=== PATIENT | male | born 1960 | race Caucasian/White ===

== ENCOUNTER 2023-02-10 10:39 | Outpatient (OUT) | payer OTHER, MEDICARE, SELFPAY ==
[2023-02-10 11:11] LABS: Basophils Percent Auto 0.6 % (0.2-2.0); Eosinophils Absolute Auto 0.1 10^3/uL (0.0-0.7); Eosinophils Percent Auto 2.1 % (0.9-7.0); Hematocrit 39.2 % (42.0-54.0); Hemoglobin 12.9 g/dL (14.0-18.0); Immature Granulocytes Abs Auto 0.02 10^3/uL (0.00-0.03); Immature Granulocytes Pct Auto 0.4 % (0.0-0.5); Lymphocytes Absolute Auto 0.9 10^3/uL (1.2-3.8); Lymphocytes Percent Auto 16.7 % (20.5-60.0); Mean Corpuscular HGB Conc 32.9 g/dL (29.9-35.2); Mean Corpuscular Hemoglobin 30.6 pg (25.9-34.0); Mean Corpuscular Volume 92.9 fL (80.0-94.0); Mean Platelet Volume 9.4 fL (9.5-13.5); Monocytes Absolute Auto 0.4 10^3/uL (0.3-0.8); Monocytes Percent Auto 7.9 % (1.7-12.0); Neutrophils Absolute Auto 3.8 10^3/uL (1.4-6.5); Neutrophils Percent Auto 72.3 % (43.0-75.0); Platelet Count 196 10^3/uL (150-450); Red Blood Count 4.22 10^6/uL (4.70-6.10); Red Cell Distribution Width 13.2 % (11.0-15.0); White Blood Count 5.2 10^3/uL (4.0-11.0)
[2023-02-10 11:28] LABS: Erythrocyte Sedimentation Rate 57 mm/hr (<=20)
[2023-02-10 11:52] LABS: Alanine Aminotransferase 23 U/L (16-63); Albumin Globulin Ratio 0.7; Albumin Level 3.2 g/dL (3.4-5.0); Alkaline Phosphatase 82 U/L (46-116); Anion Gap 11.7; Aspartate Amino Transferase 11 U/L (15-37); BUN Creatinine Ratio 19.6; Bilirubin Total 0.4 mg/dL (0.2-1.0); C Reactive Protein 1.7 mg/dL (<=1.0); Calcium 9.4 mg/dL (8.5-10.1); Carbon Dioxide 30.5 mmol/L (21.0-32.0); Chloride 104 mmol/L (98-107); Chol HDL Ratio 3.2; Cholesterol 163 mg/dL (<=200); Estimated GFR (African America >60 (>=60); Estimated GFR (Non-African Ame >60 (>=60); Globulin 4.4 g/dL; Glucose 87 mg/dL (74-106); HDL Cholesterol 51 mg/dL (40-60); LDL Cholesterol Calculated 98.8 mg/dL; Potassium 4.2 mmol/L (3.5-5.1); Sodium 142 mmol/L (136-145); Total Protein 7.6 g/dL (6.4-8.2); Triglycerides 66 mg/dL (<=150); VLDL CHOLESTEROL 13.2 mg/dL
== END 2023-02-10 10:40 | disposition home or self-care (01) ==
LOC: LAB 10:42
PROVIDERS: PCP Internal Medicine; Visit Provider Internal Medicine
DX: Z00.00 Encounter for general adult medical examination without abnormal findings (principal); Z12.5 Encounter for screening for malignant neoplasm of prostate
CPT/HCPCS: 36415; 80053; 80061; 82607; 84443; 85025; 85652; 86140; G0103

== ENCOUNTER 2023-03-18 11:49 | Outpatient (OUT) | payer OTHER, MEDICARE, SELFPAY ==
--- NOTE | 2023-03-18 | XR_ITS ---
[address] [address] Patient Name: CYDNEY HERNÁNDEZ MRN: [facility]:[id number] date: 1960 Sex: M Assigned Patient Location: LAB Current Patient Location: LAB Accession/Order Number: [id number] Exam Date: 03/18/2023 12:40 Report Date: 03/18/2023 21:04 At the request of: SHARON BENJAMIN Procedure: XR lumbar spine 6V w bending Exam: Radiographs: XR lumbar spine 6V w bending Reason for exam: Lumbago with sciatica Comparison: None XR/XR lumbar spine 6V w bending IMPRESSION: No radiographically evident lumbar spine fractures or malalignment. Degenerative changes throughout the lumbar spine with multilevel disc space narrowing. Remainder unremarkable. Electronically authenticated by: DAFNE MICHAUD Date: 03/18/2023 21:04
[2023-03-19 12:13] LABS: ANA Direct Negative (Negative)
[2023-03-19 13:08] LABS: Lyme Total Antibody CIA Negative (Negative)
[2023-03-19 17:07] LABS: Albumin 3.3 g/dL (2.9-4.4); Alpha-1-Globulin 0.3 g/dL (0.0-0.4); Alpha-2-Globulin 1.1 g/dL (0.4-1.0); Free Kappa Lt Chains,S 19.7 mg/L (3.3-19.4); Free Lambda Lt Chains,S 16.2 mg/L (5.7-26.3); Gamma Globulin 0.9 g/dL (0.4-1.8); Immunoglobulin A, Qn, Serum 179 mg/dL (61-437); Immunoglobulin G, Qn, Serum 893 mg/dL (603-1613); Immunoglobulin M, Qn, Serum 62 mg/dL (20-172); Kappa/Lambda Ratio,S 1.22 (0.26-1.65); Protein, Total 6.7 g/dL (6.0-8.5)
== END 2023-03-18 11:50 | disposition home or self-care (01) ==
LOC: LAB 11:55
PROVIDERS: PCP Internal Medicine; Visit Provider Internal Medicine
DX: M54.41 Lumbago with sciatica, right side (principal); M54.42 Lumbago with sciatica, left side; R20.8 Other disturbances of skin sensation
CPT/HCPCS: 36415; 72114; 82784; 83521; 84155; 84165; 86038; 86334; 86618

== ENCOUNTER 2023-03-25 14:19 | Outpatient (OUT) | payer OTHER, MEDICARE, SELFPAY ==
[2023-03-25 14:50] LABS: Erythrocyte Sedimentation Rate 41 mm/hr (<=20)
[2023-03-25 15:36] LABS: Creatine Kinase 31 U/L (39-308)
[2023-03-26 05:08] LABS: Rheumatoid Factor (RF) 11.6 IU/mL (<14.0)
== END 2023-03-25 14:20 | disposition home or self-care (01) ==
LOC: LAB 14:20
PROVIDERS: PCP Internal Medicine; Visit Provider Psychiatry & Neurology Neurology
DX: R20.0 Anesthesia of skin (principal)
CPT/HCPCS: 36415; 82175; 82300; 82550; 82746; 83655; 83825; 85652; 86140; 86430; 86431

== ENCOUNTER 2024-02-22 12:13 | Outpatient (OUT) | payer OTHER, SELFPAY ==
--- OUTSIDE RECORDS SUMMARY | 2024-02-22 12:19 | XMS_ITS | CCD ---
Author Organization [facility] Care Team Providers Care Alum Mixer Name Role Phone Atilio Alcocer DO Primary Care Provider ANASTASIIA SALMERON Referring Unavailab ATILIO La Primary Care Unavailable ANASTASIIA SALMERON Referring Unavailab ATILIO La Primary Care Unavailable Atilio Alcocer DO Primary Care Provider ATILIO ALCOCER Referring Unavailable ATILIO ALCOCER Primary Care Unavailable ROSCOE BRISENO Attending Unavailable JAMEY GARAY Consulting UnavailDR ATILIO Galvin Primary Care Unavailable ROSCOE BRISENO Admitting Unavailable JAKE DOMINIQUE Consulting Unavailable Asakamilla Imad Unavailable MD Jase Imkamilla Attending Provider [phone] DO Atilio Alcocer Primary Care Provider Atilio Alcocer Unavailable Atilio Alcocer Primary Care Unavailable Asaad, Imkamilla Attending Unavailable Asaad, Imad Admitting Unavailable Atilio Alcocer MD Primary Care Provider HILLS, GI D Referring Unavailable HILLS, GI D Referring Unavailable HILLS, GI D Attending Unavailable HILLS, GI D Referring Unavailable HILLS, GI D Attending Unavailable HILLS, GI D Referring Unavailable HILLS, GI D Referring Unavailable HILLS, GI D Attending Unavailable LYUDMILA THAKUR Attending Unavailable KWAKU, IG Elliott Attending Unavailable Allergies Allergy Classification Reported Allergen(s) Allergy Type Date of Onset Reaction(s) Facility (4 sources) Morphine Drug Allergy 5 Unknown [facility] (2 sources) Promethazine Drug Allergy 5 [facility] (1 source) Iothalamate Drug Allergy 4 [facility] (1 source) Levamisole Drug Allergy 4 [facility] (10 sources) Promethazine; Translations: [promethazine] Drug Allergy 4 Hallucinations, Unknown [facility] (2 sources) Metoclopramide Drug Allergy 3 Unknown [facility] Medications Current Medications Medication Drug Class(es) Dates Sig (Normalized) Sig (Original) 8 hr acetaminophen 650 mg extended release oral tablet (8 sources) take 1 tablet by mouth every eight hours as needed for pain acetaminophen (Tylenol 8 Hour) 650 MG ER tablet Take 650 mg by mouth every 8 (eight) hours if needed for mild pain. Do not crush, chew, or split. 0 Active take 2 tablets by mo [facility] every eight hours Acetaminophen ER 650 MG 2 tablets as nee ded Orally every 8 hrs Active atorvastatin 40 mg oral tablet (3 sources) HMG-CoA Reductase Inhibitor take 1 tablet by mouth every twenty-four hours Atorvastatin Calcium 40 MG 1 tablet Orally Once a day Active cyclobenzaprine hydrochloride 10 mg oral tablet (2 sources) Muscle Relaxant take 1 tablet by mouth every twenty-four hours Cyclobenzaprine HCl 10 MG 1 tablet at bedtime as needed Orally Once a day Active diclofenac 18 mg oral capsule (8 sources) Nonsteroidal Anti-inflammatory Drug Start: 2022 Diclofenac 18 MG capsule Take by mouth. 0 01/31/2023 Active take 1 tablet by [facility] every twelve hours Diclofenac Sodium 75 MG 1 tablet as need ed Orally Twice a day Active take 1 capsule by mo [facility] every eight hours Diclofenac 35 MG 1 capsule as needed Ora lly Three times a day Active gabapentin 100 mg oral capsule (2 sources) Anti-epileptic Agent Start: 03-25-2023 take 1 capsule by mouth in the morning, then take 1 capsule by mouth at bedtime gabapentin (Neurontin) 100 MG capsule TAKE 1 CAPSULE BY MOUTH IN THE MORNING AND 1 CAPSULES AT BEDTIME 0 03/25/2023 Active omeprazole 40 mg delayed release oral capsule (12 sources) Proton Pump Inhibitor Start: 07-22-2022 omeprazole (PriLOSEC) [address] capsule predniSONE 10 mg oral tablet (2 sources) Start: 06-15-2023 take 5 tablets by mouth once daily, then take 4 tablets by mouth once daily, then take 3 tablets by mouth once daily, then take 2 tablets by mouth once daily, then take 1 tablet by mouth once daily predniSONE (Deltasone) 10 MG tablet Indications: Low back pain, unspecified back pain laterality, unspecified chronicity, unspecified whether sciatica present Take 5 tabs p.o. daily x3 days Take 4 tabs p.o. daily x3 days Take 3 tabs p.o. daily x3 days Take 2 tabs p.o. daily x3 days Take 1 tab p.o. daily x3 days 45 tablet 0 06/15/2023 Active Start: 06-15-2023 take 5 tablets by mo uth once daily, then take 4 tablets by mouth once daily, then take 3 tablets by mouth once daily, then take 2 tablets by mouth once daily, then take 1 tablet by mouth once daily predniSONE (Deltasone) 10 MG tablet Indications: Low back pain, unspecified back pain laterality, unspecified chronicity, unspecified whether sciatica present Take 5 tabs p.o. daily x3 days Take 4 tabs p.o. daily x3 days Take 3 tabs p.o. daily x3 days Take 2 tabs p.o. daily x3 days Take 1 tab p.o. daily x3 days 45 tablet 0 06/15/2023 Active Problems Active Problems Problem Classification Problem Date Documented Da te Episodic/Chronic Diseases of white blood cells (9 sources) Leukopenia; Translations: [Decreased white blood cell count, unspecified] Chronic Disorders of lipid metabolism (10 sources) Pure hypercholesterolemia ; Translations: [Familial hypercholesterolemia ] Chronic Esophageal disorders (6 sources) Gastro-esophageal reflux disease with esophagitis; Translations: [Gastroesophageal reflux disease with esophagitis without hemorrhage] Chronic Genitourinary symptoms and ill-defined conditions (1 source) Nocturia Episodic Hyperplasia of prostate (5 sources) Nocturia due to benign prostatic hypertrophy; Translations: [Benign prostatic hyperplasia with lower urinary tract symptoms] Chronic Nonspecific chest pain (4 sources) Chest pain, unspecified; Translations: [CHEST PAIN UNSPECIFIED] Onset: 06-26-2022 Episodic Nutritional deficiencies (9 sources) Vitamin B12 deficiency (non anemic); Translations: [Deficiency of other specified B group vitamins] Episodic Open wounds of extremities (9 sources) Puncture wound of foot; Translations: [Puncture wound without foreign body, unspecified foot, initial encounter] Episodic Osteoarthritis (7 sources) Primary coxarthrosis, bilateral; Translations: [Bilateral primary osteoarthritis of hip] Chronic Other ear and sense organ disorders (9 sources) Impacted cerumen; Translations: [Impacted cerumen, left ear] Episodic Other gastrointestinal disorders (9 sources) Esophageal dysphagia; Translations: [Other dysphagia] Episodic Other gastrointestinal disorders (1 source) Dysphagia, unspecified; Translations: [Dysphagia, unspecified] Onset: 07-22-2022 Episodic Other gastrointestinal disorders (1 source) Heartburn; Translations: [Heartburn] Onset: 07-22-2022 Episodic Other nervous system disorders (9 sources) Paresthesia; Translations: [Paresthesia of skin] Episodic Other nervous system disorders (1 source) Paresthesia of skin Episodic Other nervous system disorders (3 sources) Abnormal sensation; Translations: [Other disturbances of skin sensation] Episodic Other nervous system disorders (1 source) Other disturbances of skin sensation Episodic Other nervous system disorders (2 sources) Numbness of hand; Translations: [Anesthesia of skin] 06-15-2023 Episodic Other non-traumatic joint disorders (2 sources) Bilateral wrist pain; Translations: [Pain in right wrist] 06-15-2023 Episodic Other nutritional; endocrine; and metabolic disorders (9 sources) Obese class I; Translations: [Obesity, unspecified] Chronic Other screening for suspected conditions (not mental disorders or infectious disease) (1 source) Encounter for screening for malignant neoplasm of prostate Episodic Other skin disorders (9 sources) Other specified disorders of pigmentation; Translations: [Pigmentation] Episodic Other upper respiratory disease (1 source) Dysphonia Episodic Skin and subcutaneous tissue infections (9 sources) Cellulitis of lower limb; Translations: [Cellulitis of left lower limb] Episodic Spondylosis; intervertebral disc disorders; other back problems (7 sources) Lumbar spondylosis; Translations: [Spondylosis without myelopathy or radiculopathy, lumbar region] Chronic Spondylosis; intervertebral disc disorders; other back problems (11 sources) Radiculopathy, lumbar region; Translations: [Acute back pain with sciatica] Episodic Unclassified (1 source) Encounter for screening for malignant neoplasm of colon; Translations: [Encounter for screening for malignant neoplasm of colon] Onset: 07-22-2022 Past or Other Problems Problem Classification Problem Date Documented Da te Episodic/Chronic Esophageal disorders (4 sources) Esophageal disorders; Translations: [Gastroesophageal reflux disease with esophagitis without hemorrhage] Viral infection (9 sources) Disease caused by 2019-nCoV; Translations: [COVID-19] Results Test Name Value Interpretation Reference Range Facility MR LUMBAR SPINE WO CONTRASTo n 07-09-2023 MR LUMBAR SPINE WO CONTRAST EXAMINATION: MR LUMBAR SPINE WO CONTRAST HISTORY: Chronic low back pain with increasing bilateral lower extremity radiculopathy, left worse than right. TECHNIQUE: Routine lumbosacral spine MR protocol without gadolinium. CONTRAST: None. COMPARISON: Radiographs 07/06/2023. RESULT: Counting reference: Lumbosacral junction. For the purposes of this report, L5-S1 is considered the last well-formed disc space. 5 lumbar type vertebral bodies. Alignment: Grade 1 anterolisthesis of L5 on S1 measuring around 5 mm. Alignment otherwise anatomic. Bone marrow signal: No evidence for acute fracture. Chronic bilateral L5 pars defects. No pathologic marrow infiltration. Multilevel endplate degenerative signal, especially at L3-L4 and L5-S1. Small Schmorl's nodes. Conus: The conus is within normal limits of signal intensity and morphology. Paraspinal soft tissues: Unremarkable. Lower thoracic spine: Visualized lower thoracic canal and foramina without significant narrowing. T12-L1: No significant canal or foraminal narrowing. L1-L2: No significant canal or foraminal narrowing. L2-L3: Tiny disc bulge. Facet degenerative changes. No significant canal or foraminal narrowing. L3-L4: Disc height loss. Broad-based disc bulge. Endplate osteophytes. Facet degenerative changes. Mild bilateral foraminal narrowing without significant canal narrowing. L4-L5: Disc bulge. Annular fissure. Endplate osteophytes. Facet degenerative changes. Mild bilateral foraminal narrowing without significant canal narrowing. L5-S1: Anterolisthesis with disc uncovering. Disc bulge. Facet degenerative changes. Moderate bilateral foraminal narrowing without significant canal narrowing. Sacrum and iliac wings: The visualized sacrum and iliac wings are within normal limits. IMPRESSION: Multilevel degenerative changes lumbar spine as discussed. No high-grade canal narrowing. Moderate bilateral foraminal narrowing at L5-S1. Grade 1 anterolisthesis of L5 on S1 secondary to chronic bilateral L5 pars defects. ELECTRONICALLY SIGNED BY: Zachery Leon MD Normal Not Available Comment on above: Order Comment: Previ ous metal in eye - 10 years ago No Panel Informationon 06-15 Radiology Study observation (narrative) [facility] XR Wrist - left 3 [facility] Result: AP lateral and oblique of the left wrist taken in the office today demonstrating more CMC arthritic findings. No acute fracture evidence of bony tumor [facility] XR Wrist - right 3 [facility] 0 06-15-2023 Imaging Result: AP lateral and oblique of the right wrist taken in the office today patient does have some arthritic findings tri-scaphoid region as well as early CMC joint with no other apparent collapse of the wrist or degenerative findings or acute fracture. [facility] C-Reactive Proteinon 023 C-Reactive Protein 1.7 mg/dL High <=1.0 mg/dL [facility] Other Comprehensive Metabolic Pane julio 02-10-2023 Albumin [Mass/Vol] 3.588650 g/dL Low 3.4-5.0 g/dL [employer] Other ALP [Catalytic activity/Vol] 82 U/L Normal 46-116 U/L [employer] Other ALT [Catalytic activity/Vol] 23 U/L Normal 16-63 U/L [employer] Other Anion gap [Moles/Vol] 11.7 mmol/L [employer] Other AST [Catalytic activity/Vol] 11 U/L Low 15-37 U/L [employer] Other Bilirubin [Mass/Vol] 0.1730052 mg/dL Normal 0.2-1.0 mg/dL [employer] Other Calcium [Mass/Vol] 9.0192651 mg/dL Normal 8.5-10 .1 mg/dL [employer] Other Chloride [Moles/Vol] 104 mmol/L Normal 98-107 mmol/L [employer] Other CO2 [Moles/Vol] 30.94258425 mmol/L Normal 21.0-3 2.0 mmol/L [employer] Other Creatinine [Mass/Vol] 0.02151082 mg/dL Normal 0.70-1.30 mg/dL [employer] Other Glucose [Mass/Vol] 87 mg/dL Normal 74-106 mg/dL [facility] Other Potassium [Moles/Vol] 4.64564408 mmol/L Normal 3.5-5.1 mmol/L [employer] Other Protein [Mass/Vol] 7.392281 g/dL Normal 6.4-8.2 g/dL N [facility] [employer] Other Sodium [Moles/Vol] 142 mmol/L Normal 136-145 mmol/L [employer] Other Urea nitrogen [Mass/Vol] 18.6922221 mg/dL Normal 7.0-18.0 mg/dL [employer] Other Urea nitrogen/Creatinine [Mass ratio] 19.6 mg/mg [employer] Other Comprehensive Metabolic Panel 4.4 g/dL [employer] Other Comprehensive Metabolic Panel 0.7 [employer] Other Comprehensive Metabolic Panel see note [employer] Other Comprehensive Metabolic Panel >60 >=60 [employer] Other Erythrocyte Sedimentation Ra lynne 02-10-2023 ESR (Bld) [Velocity] 57 mm/h High <=20 mm/hr [employer] Other Lipid Panelon 02-10-2023 Cholesterol [Mass/Vol] 163 mg/dL <=200 mg/dL [employer] Other Cholesterol in HDL [Mass/Vol] 51 mg/dL Normal 40-60 mg/dL [employer] Other Triglyceride [Mass/Vol] 66 mg/dL <=150 mg/dL [employer] Other Lipid Panel 98.8 mg/dL [employer] Other Lipid Panel 13.2 mg/dL [employer] Other Lipid Panel 3.2 [employer] Other PSA SCREENINGon 02-10-2023 PSA SCREENING 1.70 ng/mL <=4.00 ng/mL [employer] [facility] Other Julio 07-22-2022 L - -------- Specimen: [id number] Received: 07/22/22 Status: NAYLA Yeung Num: [id number] Spec Type: Surgical Subm Dr: Ollie Laguna MD Tissues: A Gastric Biopsy (GASTRIC BX) Procedures: Alphonso MELENDREZ/Heath L4 -------- Age/ Patient Sex Location Account Attending Physician -------- Rick Hernández/Dylan [id number] Ollie Laguna MD -------- SPEC NUM: [id number] RECD: 07/22/22 STATUS: NAYLA YEUNG NUM: [id number] ANNE-MARIE: 07/22/22- DR: Ollie Laguna MD ENTERED: 07/22/22 [facility] DR: SPEC TYPE: Surgical DEPT: S ORDERED: HE/2, Gross/Micro L4 ORDERED: HE/2, Gross/Micro L4 Pathological Diagnosis Stomach, gastric, biopsy: - Gastric mucosa negative for significant histopathologic changes. - Negative for Helicobacter pylori on H E stain. Clinical Information GERD, screening, rule out H. pylori Gross Description Received in formalin labeled with the patient's name, number and gastric, rule out H. pylori is one fragment of soft luther tissue measuring 0.4 x 0.3 x 0.2 cm. Entirely submitted in one cassette labeled A1. Microscopic Description Two glass slides with H E stained material have been examined. The microscopic findings support the above pathologic diagnosis. CPT Codes 84718 -------- -------- Specimen: [id number] Received: 07/22/22 Status: NAYLA Santacruzisael Num: [id number] Spec Type: Surgical Subm Dr: Ollie Laguna MD Tissues: A Gastric Biopsy (GASTRIC BX) Procedures: HE/2, Gross/Micro L4 -------- Patient: Rick Hernández [id number] (Continued) -------- Signed (signature on file) Fabiana Qureshi MD 07/23/22 1030 Normal [facility] CBC AUTO DIFFon 06-26-2022 BASO # 0.0 103/ul Normal 0.0-0.1 [facility] Comment on above: Performed By: #### C BC #### [facility] [address] [place] [address] Dr. Corey Thompson Basophils/100 WBC (Bld) 0.8 % Normal 0.2-2.0 [facility] Comment on above: Performed By: #### C BC #### [facility] [address] [place] [address] Dr. Corey Thompson EO # 0.1 103/ul Normal 0.0-0.7 [facility] Comment on above: Performed By: #### C BC #### [facility] [address] [place] [address] Dr. Corey Thompson Eosinophils/100 WBC (Bld) 2.8 % Normal 0.9-7.0 [facility] Comment on above: Performed By: #### C BC #### [facility] [address] [place] [address] Dr. Corey Thompson Erythrocyte distribution width (RBC) [Ratio] 13.0 % Normal 11.0-15.0 [facility] Comment on above: Performed By: #### C BC #### [facility] [address] [address] [address] Corey Thompson Hematocrit (Bld) [Volume fraction] 42.8 % Normal 42.0-54.0 [facility] Comment on above: Performed By: #### C BC #### [facility] [address] [address] [address] Corey Thompson Hemoglobin (Bld) [Mass/Vol] 15.1 g/dL Normal 14.0-18.0 [facility] Comment on above: Performed By: #### C BC #### [facility] [address] [place] [address] Dr. Corey Thompson IG # 0.01 10e3/ul Normal 0.00-0.03 [facility] Comment on above: Performed By: #### C BC #### [facility] [address] [place] [address] Dr. Corey Thompson IG % 0.3 % Normal 0.0-0.5 [facility] Comment on above: Performed By: #### C BC #### [facility] [address] [place] [address] Dr. Corey Thompson LYMPH # 1.3 103/ul Normal 1.2-3.8 [facility] Comment on above: Performed By: #### C BC #### [facility] [address] [place] [address] Dr. Corey Thompson Lymphocytes/100 WBC (Bld) 33.7 % Normal 20.5-60.0 [facility] Comment on above: Performed By: #### C BC #### [facility] [address] [place] [address] Dr. Corey Thompson MANUAL DIFF REQ NO Normal [facility] Comment on above: Performed By: #### C BC #### [facility] [address] [place] [address] Dr. Corey Thompson MCH (RBC) [Entitic mass] 31.9 pg Normal 25.9-34.0 [facility] Comment on above: Performed By: #### C BC #### [facility] [address] [place] [address] Dr. Corey Thompson MCHC (RBC) [Mass/Vol] 35.3 g/dL Critically high 29.9-35.2 [facility] Comment on above: Performed By: #### C BC #### [facility] [address] [place] [address] Dr. Corey Thompson MCV (RBC) [Entitic vol] 90.5 fL Normal 80.0-94.0 [facility] Comment on above: Performed By: #### C BC #### [facility] [address] [place] [address] Dr. Corey Thompson MONO # 0.5 103/ul Normal 0.3-0.8 [facility] Comment on above: Performed By: #### C BC #### [facility] [address] [place] [address] Dr. Corey Thompson Monocytes/100 WBC (Bld) 11.9 % Normal 1.7-12.0 [facility] Comment on above: Performed By: #### C BC #### [facility] [address] [place] [address] Dr. Corey Thompson NEUT # 2.0 103/ul Normal 1.4-6.5 [facility] Comment on above: Performed By: #### C BC #### [facility] [address] [place] [address] Dr. Corey Thompson Neutrophils/100 WBC (Bld) 50.5 % Normal 43.0-75.0 [facility] Comment on above: Performed By: #### C BC #### [facility] [address] [place] [address] Dr. Corey Thompson Platelet mean volume (Bld) [Entitic vol] 10.5 fL Normal 9.5-13.5 [facility] Comment on above: Performed By: #### C BC #### [facility] [address] [place] [address] Dr. Corey Thompson PLT 180 103/ul Normal 150-450 [facility] Comment on above: Performed By: #### C BC #### [facility] [address] [place] [address] Dr. Corey Thompson RBC 4.73 106/ul Normal 4.70-6.10 [facility] Comment on above: Performed By: #### C BC #### [facility] [address] [place] [address] Dr. Corey Thompson WBC 4.0 103/ul Normal 4.0-11.0 [facility] Comment on above: Performed By: #### C BC #### [facility] [address] [place] [address] Dr. Corey Thompson PROF 14(COMP METB)on 023 Albumin [Mass/Vol] 4.0 g/dL Normal 3.4-5.0 [facility] Comment on above: Performed By: #### C BOB, HSTROPN #### [facility] [address] [place] [address] Dr. Corey Thompson Albumin/Globulin [Mass ratio] 1.2 {ratio} Normal [facility] Comment on above: Performed By: #### C MP, HSTROPN #### [facility] [address] [place] [address] Dr. Corey Thompson ALP [Catalytic activity/Vol] 78 U/L Normal 46-116 [facility] Comment on above: Performed By: #### C MP, HSTROPN #### [facility] [address] [place] [address] Dr. Corey Thompson ALT [Catalytic activity/Vol] 27 U/L Normal 16-63 [facility] Comment on above: Performed By: #### C MP, HSTROPN #### [facility] [address] [place] [address] Dr. Corey Thompson Anion gap [Moles/Vol] 12.2 mmol/L Normal [facility] Comment on above: Performed By: #### C MP, HSTROPN #### [facility] [address] [place] [address] Dr. Corey Thompson AST [Catalytic activity/Vol] 20 U/L Normal 15-37 [facility] Comment on above: Performed By: #### C MP, HSTROPN #### [facility] [address] [address] [address] Corey Thompson Bilirubin [Mass/Vol] 0.5 mg/dL Normal 0.2-1.0 [facility] Comment on above: Performed By: #### C MP, HSTROPN #### [facility] [address] [place] [address] Dr. Corey Thompson Calcium [Mass/Vol] 9.2 mg/dL Normal 8.5-10.1 [facility] Comment on above: Performed By: #### C MP, HSTROPN #### [facility] [address] [place] [address] Dr. Corey Thompson Chloride [Moles/Vol] 101 mmol/L Normal 98-107 [facility] Comment on above: Performed By: #### C MP, HSTROPN #### [facility] [address] [place] [address] Dr. Corey Thompson CO2 [Moles/Vol] 27.6 mmol/L Normal 21.0-32.0 [facility] Comment on above: Performed By: #### C MP, HSTROPN #### [facility] [address] [place] [address] Dr. Corey Thompson Creatinine [Mass/Vol] 1.07 mg/dL Normal 0.70-1.30 [facility] Comment on above: Performed By: #### C MP, HSTROPN #### [facility] [address] [place] [address] Dr. Corey Thompson EGFR-AF LATVIAN >60 Normal >=60 [facility] Comment on above: Performed By: #### C MP, HSTROPN #### [facility] [address] [place] [address] Dr. Corey Thompson EGFR-NON AF LATVIAN >60 Normal >=60 [facility] Comment on above: Performed By: #### C MP, HSTROPN #### [facility] [address] [place] [address] Dr. Corey Thompson Globulin (S) [Mass/Vol] 3.4 g/dL Normal [facility] Comment on above: Performed By: #### C MP, HSTROPN #### [facility] [address] [address] [address] Corey Thompson Glucose [Mass/Vol] 104 mg/dL Normal 74-106 [facility] Comment on above: Performed By: #### C MP, HSTROPN #### [facility] [address] [place] [address] Dr. Corey Thompson Potassium [Moles/Vol] 3.8 mmol/L Normal 3.5-5.1 [facility] Comment on above: Performed By: #### C BOB, HSTROPN #### [facility] [address] [place], [place] [address] Dr. Corey Thompson Protein [Mass/Vol] 7.4 g/dL Normal 6.4-8.2 [facility] Comment on above: Performed By: #### C BOB, HSTROPN #### [facility] [address] [place] [address] Dr. Corey Thompson Sodium [Moles/Vol] 137 mmol/L Normal 136-145 [facility] Comment on above: Performed By: #### C BOB, HSTROPN #### [facility] [address] [place] [address] Dr. Corey Thompson Urea nitrogen [Mass/Vol] 18.0 mg/dL Normal 7.0-18.0 [facility] Comment on above: Performed By: #### C BOB, HSTROPN #### [facility] [address] [place] [address] Dr. Corey Thompson Urea nitrogen/Creatinine [Mass ratio] 16.8 mg/mg Normal [facility] Comment on above: Performed By: #### C BOB, HSTROPN #### [facility] [address] [place] [address] Dr. Corey Thompson PROTIMEon 06-26-2022 INR Coag (PPP) [Relative time] 0.97 {INR} Normal [facility] Comment on above: Performed By: #### P TT, PT #### [facility] [address] [place] [address] Dr. Corey Thopmson INR GUIDELINES SEE BELOW Normal [facility] Comment on above: Result Comment: MIGUEL RED INR: 2.0 - 3.0 CONDITIONS NOT LISTED BELOW 2.5 - 3.5 FOR PROSTHETIC HEART VALVE REPLACEMENT 2.5 - 3.5 RECURRENT THROMBOSIS Performed By: #### P TT, PT #### [facility] [address] [place] [address] Dr. Corey Thompson PT Coag (PPP) [Time] 10.3 s Normal 9.0-11.6 [facility] Comment on above: Performed By: #### P TT, PT #### [facility] [address] [place] [address] Dr. Corey Thompson PTTon 06-26-2022 aPTT Coag (Bld) [Time] 27.2 s Normal 22.3-36.2 [facility] Comment on above: Performed By: #### P TT, PT #### [facility] [address] [place] [address] Dr. Corey Thompson TROPONIN, HIGH SENSITIVITYon 06-26-2022 HSTROP 4.6 pg/mL Normal 4.0-76.1 [facility] Comment on above: Result Comment: CUT- OFF POINTS HAVE BEEN ESTABLISHED BASED ON THE FOURTH UNIVERSAL DEFINITIONS OF MYOCARDIAL INFARCTION. THE UPPER REFERENCE LIMIT (URL) OF TROPONIN, DEFINED THE 99TH PERCENTILE OF cTnI DISTRIBUTION IN A REFERENCE POPULATION, HAS BEEN CONFIRMED THE DECISION THRESHOLD FOR [place] DIAGNOSIS. Performed By: #### H STROPN #### [facility] [address] [place] [address] Dr. Corey Thompson HSTROP 4.3 pg/mL Normal 4.0-76.1 [facility] Comment on above: Result Comment: CUT- OFF POINTS HAVE BEEN ESTABLISHED BASED ON THE FOURTH UNIVERSAL DEFINITIONS OF MYOCARDIAL INFARCTION. THE UPPER REFERENCE LIMIT (URL) OF TROPONIN, DEFINED THE 99TH PERCENTILE OF cTnI DISTRIBUTION IN A REFERENCE POPULATION, HAS BEEN CONFIRMED THE DECISION THRESHOLD FOR [place] DIAGNOSIS. Performed By: #### C MP, HSTROPN #### [facility] [address] [place] [address] Dr. Corey Thompson XR CHEST 1 Von 06-26-2022 XR CHEST 1 V EXAMINATION: XR CHES T 1 V HISTORY: Chest pain COMPARISON: None. TECHNIQUE: Portable chest FINDINGS: The lung parenchyma is free of consolidation or infiltrate. No pneumothorax or pleural effusion. The cardiac, mediastinal and hilar contours are normal. The visualized osseous structures exhibit no gross abnormality. IMPRESSION: No acute cardiopulmonary abnormality. Electronically authenticated by: JAKE DOMINIQUE Date: 2022-06-26 19:[address] [facility] Lipid Profileon 03-04-2022 Cholesterol [Mass/Vol] 195 mg/dL Normal <200 [facility] Comment on above: Result Comment: Cholesterol Guidelines: <200 Desirable 200-240 Borderline >240 Undesirable Performed By: #### P SAS, LIPR #### [facility] [address] [place] [id number] Quality Analyst: Alex Bernal MD #### CDP, CP #### [address] [place] [phone] Quality Analyst: Jake Meade MD Cholesterol in HDL [Mass/Vol] 47 mg/dL Normal >40 [facility] Comment on above: Result Comment: HDL Guidelines: <40 Undesirable 40-59 Borderline >59 Desirable Performed By: #### P SAS, LIPR #### [employer] [address] [place] [address] Quality Analyst: Alex Bernal MD #### CDP, CP #### [address] [place] [phone] Quality Analyst: Jake Meade MD Cholesterol in LDL [Mass/Vol] 126 mg/dL Normal 0-130 [facility] Comment on above: Result Comment: LDL Guidelines: <100 Desirable 100-129 Near to/above Desirable 130-159 Borderline >159 Undesirable Direct (measured) LDL and calculated LDL are not interchangeable tests. Performed By: #### P SAS, LIPR #### [facility] [address] [address] Quality Analyst: Alex Bernal MD #### CDP, CP #### [facility] [address] [place], [place] [phone] Quality Analyst: Jake Meade MD Cholesterol.total/C holesterol in HDL [Mass ratio] 4.1 {ratio} Normal <5 [facility] Comment on above: Performed By: #### P SAS, LIPR #### [address] [place] [address] Quality Analyst: Alex Bernal MD #### CDP, CP #### [facility] [address] [place] [address] Quality Analyst: Jake Meade MD Triglyceride [Mass/Vol] 109 mg/dL Normal <150 [facility] Comment on above: Result Comment: Triglyceride Guidelines: <150 Desirable 150-199 Borderline 200-499 High >499 Very high Based on AHA Guidelines for fasting triglyceride, February 2012. Performed By: #### P SAS, LIPR #### [address] [address] Quality Analyst: Alex Bernal MD #### CDP, CP #### [address] [place] [address] Quality Analyst: Jake Meade MD PSA, Screeningon 03-04-2022 Prostatic Spec. Ag 1.20 ng/mL Normal <4.1 [facility] Comment on above: Result Comment: The Manuela ECLIA assay is used. Results obtained with different assay methods cannot be used interchangeably. Performed By: #### P SAS, LIPR #### [address] [place] [address] Quality Analyst: Alex Bernal MD #### CDP, CP #### [facility] [address] [place] [address] [place] [address] Quality Analyst: Jake Meade MD CBC with Auto Differentialon 03-03-2022 Absolute Eos # 0.08 [facility] Absolute Immature Granulocyte [facility] Absolute Lymph # 1.09 Low [facility] Absolute [place] # 0.33 [facility] Basophils (Bld) [#/Vol] 0.03 10*3/uL [facility] Basophils/100 WBC (Bld) 1 % 0 - 2 % [facility] Eosinophils/100 WBC (Bld) 2 % 1 - 4 % [facility] Hematocrit (Bld) [Volume fraction] 43.5 % 40.7 - 50.3 % [facility] Hemoglobin (Bld) [Mass/Vol] 15.3 g/dL 13.0 - 17.0 g/dL [facility] Immature granulocytes/100 WBC (Bld) 0 % 0 [facility] Interpretation and review of laboratory results Abnormal [facility] Lymphocytes/100 WBC (Bld) 31 % 24 - 43 % [facility] MCH (RBC) [Entitic mass] 33.6 pg High 25.2 - 33.5 pg [facility] MCHC (RBC) [Mass/Vol] 35.2 g/dL High 28.4 - 34.8 g/dL [facility] MCV (RBC) [Entitic vol] 95.6 fL 82.6 - 102.9 fL [facility] Monocytes/100 WBC (Bld) 10 % 3 - 12 % [facility] NRBC Automated 0.0 0.0 per 100 WBC [facility] Platelet distribution width (Bld) [Ratio] 12.8 % 11.8 - 14.4 % [facility] Platelet mean volume (Bld) [Entitic vol] 10.9 fL 8.1 - 13.5 fL [facility] Platelets (Bld) [#/Vol] 156 10*3/uL [facility] RBC (Bld) [#/Vol] 4.55 10*6/uL 4.21 - 5.7 7 m/uL [facility] Segmented neutrophils/100 WBC (Bld) 56 % 36 - 65 % [facility] Segs Absolute 1.93 [facility] WBC (Bld) [#/Vol] 3.5 10*3/uL [facility][NOTE 3] CBC with Diffon 10-31-2022 Abs. Basophil 0.03 k/uL Normal 0.00-0.[address] [facility] Comment on above: Performed By: #### P SAS, LIPR #### [address] [address] Quality Analyst: Alex Bernal MD #### CDP, CP #### [address] [place] [phone] Quality Analyst: Jake Meade MD Abs.Imm.Granulocyte <0.03 Normal 0.00-0.30 [facility] Comment on above: Performed By: #### P SAS, LIPR #### [address] [address] Quality Analyst: Alex Bernal MD #### CDP, CP #### [address] [place] [phone] ( Quality Analyst: Jake Meade MD Abs.Neutrophil (Seg) 1.93 k/uL Normal 1.50-8.10 [facility] Comment on above: Performed By: #### P SAS, LIPR #### [address] [address] Quality Analyst: Alex Bernal MD #### CDP, CP #### [address] [place] [phone] Quality Analyst: Jake Meade MD Basophils/100 WBC (Bld) 1 % Normal 0-2 [facility] Comment on above: Performed By: #### P SAS, LIPR #### [address] [address] Quality Analyst: Alex Bernal MD #### CDP, CP #### [address] [place] [phone] Quality Analyst: Jake Meade MD Eosinophils (Bld) [#/Vol] 0.08 10*3/uL Normal 0.00-0.44 [facility] Comment on above: Performed By: #### P SAS, LIPR #### [address] [address] Quality Analyst: Alex Bernal MD #### CDP, CP #### [address] [place] [address] Quality Analyst: Jake Meade MD Eosinophils/100 WBC (Bld) 2 % Normal 1-4 [facility] Comment on above: Performed By: #### P SAS, LIPR #### [address] [address] Quality Analyst: Alex Bernal MD #### CDP, CP #### [address] [place] [phone] Quality Analyst: Jake Meade MD Erythrocyte distribution width (RBC) [Ratio] 12.8 % Normal 11.8-14.4 [facility] Comment on above: Performed By: #### P SAS, LIPR #### [address] [address] Quality Analyst: Alex Bernal MD #### CDP, CP #### [address] [place] [address] Quality Analyst: Jake Meade MD Hematocrit (Bld) [Volume fraction] 43.5 % Normal 40.7-50.3 [facility] Comment on above: Performed By: #### P SAS, LIPR #### [address] [address] Quality Analyst: Alex Bernal MD #### CDP, CP #### [address] [place] [phone] Quality Analyst: Jake Meade MD Hemoglobin (Bld) [Mass/Vol] 15.3 g/dL Normal 13.0-17.0 [facility] Comment on above: Performed By: #### P SAS, LIPR #### [address] [address] Quality Analyst: Alex Bernal MD #### CDP, CP #### [facility] [address] [place], [place] [phone] Quality Analyst: Jake Meade MD Immature granulocytes/100 WBC (Bld) 0 % Normal 0 [facility] Comment on above: Performed By: #### P SAS, LIPR #### [address] [address] Quality Analyst: Alex Bernal MD #### CDP, CP #### [facility] [address] [place] [address] [place] [address] Quality Analyst: Jake Meade MD Lymphocytes (Bld) [#/Vol] 1.09 10*3/uL Low 1.10-3.70 [facility] Comment on above: Performed By: #### P SAS, LIPR #### [address] [address] Quality Analyst: Alex Bernal MD #### CDP, CP #### [facility] [address] [place] [address] Dr. [place] [phone] Quality Analyst: Jake Meade MD Lymphocytes/100 WBC (Bld) 31 % Normal 24-43 [facility] Comment on above: Performed By: #### P SAS, LIPR #### [address] [address] Quality Analyst: Alex Bernal MD #### CDP, CP #### [address] [place] [phone] Quality Analyst: Jake Meade MD MCH (RBC) [Entitic mass] 33.6 pg High 25.2-33.5 [facility] Comment on above: Performed By: #### P SAS, LIPR #### [facility] [address] [place], [place] [phone] Quality Analyst: Alex Bernal MD #### CDP, CP #### [facility] [address] [place] [address] Dr. [place], [place] [phone] Quality Analyst: Jake Meade MD MCHC (RBC) [Mass/Vol] 35.2 g/dL High 28.4-34.8 [facility] Comment on above: Performed By: #### P SAS, LIPR #### [address] [id number] Quality Analyst: Alex Bernal MD #### CDP, CP #### [facility] [address] [place] [address] Dr. [place] [phone] Quality Analyst: Jake Meade MD MCV (RBC) [Entitic vol] 95.6 fL Normal 82.6-102.9 [facility] Comment on above: Performed By: #### P SAS, LIPR #### [address] [id number] Quality Analyst: Alex Bernal MD #### CDP, CP #### [facility] [address] [place] [address] [place] [address] Quality Analyst: Jake Meade MD Monocytes (Bld) [#/Vol] 0.33 10*3/uL Normal 0.10-1.20 [facility] Comment on above: Performed By: #### P SAS, LIPR #### [address] [place], [place] [phone] Quality Analyst: Alex Bernal MD #### CDP, CP #### [address] [place] [address] Quality Analyst: Jake Meade MD Monocytes/100 WBC (Bld) 10 % Normal 3-12 [facility] Comment on above: Performed By: #### P SAS, LIPR #### [address] [phone] Quality Analyst: Alex Bernal MD #### CDP, CP #### [address] [place], [place] 6005183 Quality Analyst: Jake Meade MD Neutrophil (Seg) 56 % Normal 36-65 [facility] Comment on above: Performed By: #### P SAS, LIPR #### [address] [address] Quality Analyst: Alex Bernal MD #### CDP, CP #### [address] [place] [phone] Quality Analyst: Jake Meade MD NRBC Automated 0.0 per 100 WBC Normal 0.0 [facility] Comment on above: Performed By: #### P SAS, LIPR #### [address] [address] Quality Analyst: Alex Bernal MD #### CDP, CP #### [address] [place], [facility] Quality Analyst: Jake Meade MD Platelet mean volume (Bld) [Entitic vol] 10.9 fL Normal 8.1-13.5 [facility] Comment on above: Performed By: #### P SAS, LIPR #### [address] [address] Quality Analyst: Alex Bernal MD #### CDP, CP #### [address] [place] [phone] Quality Analyst: Jake Meade MD Platelets (Bld) [#/Vol] 156 10*3/uL Normal 138-453 [facility] Comment on above: Performed By: #### P SAS, LIPR #### [address] [address] Quality Analyst: Alex Bernal MD #### CDP, CP #### [address] [place] [address] Quality Analyst: Jake Meade MD RBC (Bld) [#/Vol] 4.55 10*6/uL Normal 4.21-5.77 [facility] Comment on above: Performed By: #### P SAS, LIPR #### [address] [address] Quality Analyst: Alex Bernal MD #### CDP, CP #### [address] [place] [address] Quality Analyst: Jake Meade MD WBC (Bld) [#/Vol] 3.5 10*3/uL Normal 3.5-11.3 [facility] Comment on above: Performed By: #### P SAS, LIPR #### [address] [address] Quality Analyst: Alex Bernal MD #### CDP, CP #### [address] [place] [address] Quality Analyst: Jake Meade MD Comp Metabolic Profon 2021 Albumin [Mass/Vol] 4.4 g/dL Normal 3.5-5.2 [facility] Comment on above: Performed By: #### P SAS, LIPR #### [address] [address] Quality Analyst: Alex Bernal MD #### CDP, CP #### [address] [place] [address] Quality Analyst: Jake Meade MD Albumin/Glob Ratio 1.8 Normal 1.0-2.5 [facility] Comment on above: Performed By: #### P SAS, LIPR #### [address] [address] Quality Analyst: Alex Bernal MD #### CDP, CP #### [facility] [address] [place] [address] Dr. [place], [place] [phone] Quality Analyst: Jake Meade MD Alkaline Phos 66 U/L Normal 40-[address] [facility] Comment on above: Performed By: #### P SAS, LIPR #### [address] [address] Quality Analyst: Alex Bernal MD #### CDP, CP #### [address] [place], [place] [phone] Quality Analyst: Jake Meade MD ALT [Catalytic activity/Vol] 25 U/L Normal 5-41 [facility] Comment on above: Performed By: #### P SAS, LIPR #### [address] [address] Quality Analyst: Alex Bernal MD #### CDP, CP #### [address] [place], [place] 9693983 Quality Analyst: Jake Meade MD Anion gap [Moles/Vol] 8 mmol/L Low 9-17 [facility] Comment on above: Performed By: #### P SAS, LIPR #### [address] [address] Quality Analyst: Alex Bernal MD #### CDP, CP #### [facility] [address] [place], [place] 1918083 Quality Analyst: Jake Meade MD AST [Catalytic activity/Vol] 20 U/L Normal <40 [facility] Comment on above: Performed By: #### P SAS, LIPR #### [address] [address] Quality Analyst: Alex Bernal MD #### CDP, CP #### [address] [place], [place] [phone] Quality Analyst: Jake Meade MD Bilirubin [Mass/Vol] 0.5 mg/dL Normal 0.3-1.2 [facility] Comment on above: Performed By: #### P SAS, LIPR #### [address] [address] Quality Analyst: Alex Bernal MD #### CDP, CP #### [address] [place], [place] 9403683 Quality Analyst: Jake Meade MD BUN/CRE Ratio 13 Normal 9-[address] [facility] Comment on above: Performed By: #### P SAS, LIPR #### [address] [address] Quality Analyst: Alex Bernal MD #### CDP, CP #### [address] [place], [place] [phone] Quality Analyst: Jake Meade MD Calcium [Mass/Vol] 9.2 mg/dL Normal 8.6-10.4 [facility] Comment on above: Performed By: #### P SAS, LIPR #### [address] [address] Quality Analyst: Alex Bernal MD #### CDP, CP #### [address] [place], [place] [phone] Quality Analyst: Jake Meade MD Chloride [Moles/Vol] 104 mmol/L Normal 98-107 [facility] Comment on above: Performed By: #### P SAS, LIPR #### [address] [address] Quality Analyst: Alex Bernal MD #### CDP, CP #### [address] [place], [place] [phone] Quality Analyst: Jake Meade MD CO2 [Moles/Vol] 27 mmol/L Normal 20-31 [facility] Comment on above: Performed By: #### P SAS, LIPR #### [facility] [address] [place] [address] Quality Analyst: Alex Bernal MD #### CDP, CP #### [address] [place], [place] 8643183 Quality Analyst: Jake Meade MD Creatinine [Mass/Vol] 0.92 mg/dL Normal 0.70-1.20 [facility] Comment on above: Performed By: #### P SAS, LIPR #### [address] [id number] Quality Analyst: Alex Bernal MD #### CDP, CP #### [address] [place] [address] Quality Analyst: Jake Meade MD GFR/1.73 sq M.predicted among non-blacks MDRD (S/P/Bld) [Vol rate/Area] mL/min/{1.73_m2} Normal >60 [facility] Comment on above: Result Comment: Effective Feb 03, 2022 These results are not intended for use in patients <18 years of age. eGFR results are calculated without a race factor using the 2020 CKD-EPI equation. Careful clinical correlation is recommended, particularly when comparing to results calculated using previous equations. The CKD-EPI equation is less accurate in patients with extremes of muscle mass, extra-renal metabolism of creatine, excessive creatine ingestion, or following therapy that affects renal tubular secretion. Performed By: #### P SAS, LIPR #### [address] [address] Quality Analyst: Alex Bernal MD #### CDP, CP #### [address] [place], [place] 1517783 Quality Analyst: Jake Meade MD Glucose [Mass/Vol] 98 mg/dL Normal 70-99 [facility] Comment on above: Performed By: #### P SAS, LIPR #### [address] [address] Quality Analyst: Alex Bernal MD #### CDP, CP #### [facility] [address] [place] [address] Dr[place], [place] [phone] Quality Analyst: Jake Meade MD Potassium [Moles/Vol] 4.4 mmol/L Normal 3.7-5.3 [facility] Comment on above: Performed By: #### P SAS, LIPR #### [address] [address] Quality Analyst: Alex Bernal MD #### CDP, CP #### [address] [place] [phone] Quality Analyst: Jake Meade MD Protein [Mass/Vol] 6.9 g/dL Normal 6.4-8.3 [facility] Comment on above: Performed By: #### P SAS, LIPR #### [address] [address] Quality Analyst: Alex Bernal MD #### CDP, CP #### [address] [place], [place] 9180183 Quality Analyst: Jake Meade MD Sodium [Moles/Vol] 139 mmol/L Normal 135-144 [facility] Comment on above: Performed By: #### P SAS, LIPR #### [address] [address] Quality Analyst: Alex Bernal MD #### CDP, CP #### [address] [place], [place] [phone] Quality Analyst: Jake Meade MD Urea nitrogen [Mass/Vol] 12 mg/dL Normal 8-23 [facility] Comment on above: Performed By: #### P SAS, LIPR #### [facility] [address] [place], [place] [phone] Quality Analyst: Alex Bernal MD #### CDP, CP #### [facility] [address] [place] [address] Quality Analyst: Jake Meade MD Comprehensive Metabolic Pane [facility] 03-03-2022 Albumin [Mass/Vol] 4.4 g/dL 3.5 - 5.2 g/dL [facility] Albumin/Globulin [Mass ratio] 1.8 {ratio} 1.0 - 2.5 [facility] ALP (Bld) [Catalytic activity/Vol] 66 U/L 40 - 129 U/L [facility] ALT [Catalytic activity/Vol] 25 U/L 5 - 41 U/L [facility] Anion gap [Moles/Vol] 8 mmol/L Low 9 - 17 mmol/L [facility] AST [Catalytic activity/Vol] 20 U/L NINF - 40 U/L [facility] Bilirubin [Mass/Vol] 0.5 mg/dL 0.3 - 1.2 mg/dL [facility] Calcium [Mass/Vol] 9.2 mg/dL 8.6 - 10. 4 mg/dL [facility] Chloride [Moles/Vol] 104 mmol/L 98 - 107 mmol/L [facility] CO2 [Moles/Vol] 27 mmol/L 20 - 31 mmol/L [facility] Creatinine [Mass/Vol] 0.92 mg/dL 0.70 - 1.20 mg/dL [facility] GFR/1.73 sq M.predicted MDRD (S/P/Bld) [Vol rate/Area] - PINF [facility] Comment on above: Effective Feb 03, 2022 These results are not intended for use in patients <18 years of age. eGFR results are calculated without a race factor using the 2020 CKD-EPI equation. Careful clinical correlation is recommended, particularly when comparing to results calculated using previous equations. The CKD-EPI equation is less accurate in patients with extremes of muscle mass, extra-renal metabolism of creatine, excessive creatine ingestion, or following therapy that affects renal tubular secretion. Glucose [Mass/Vol] 98 mg/dL 70 - 99 mg/dL [facility] Interpretation and review of laboratory results Abnormal [facility] Potassium [Moles/Vol] 4.4 mmol/L 3.7 - 5.3 mmol/L [facility] [facility] Protein [Mass/Vol] 6.9 g/dL 6.4 - 8.3 g/dL [facility] Sodium [Moles/Vol] 139 mmol/L 135 - 144 mmol/L [facility] Urea nitrogen (BldV) [Mass/Vol] 12 mg/dL 8 - 23 mg/dL [facility] Urea nitrogen/Creatinine (Bld) [Mass ratio] 13 9 - 20 [facility] XR SHOULDER RIGHT (MIN 2 VIE WS)on 12-19-2020 XR SHOULDER RIGHT (MIN 2 VIEWS) EXAM: XR SHOULDER RIGHT (MIN 2 VIEWS) HISTORY: M25.511 60-year-old male right shoulder pain and decreased range of motion. COMPARISON: None. TECHNIQUE: 3 views right shoulder. 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 Moderate degenerative change acromioclavicular joint. Negative for calcific bursitis. IMPRESSION: Severe degenerative changes right glenohumeral joint. Interpreted by: Delroy Bearden Jr., MD Signed by: Delroy Bearden Jr., MD 12/19/20 Final result Normal [facility] Vital Signs Date Time Vital Sign Value Performing Clinician Facility 06-15-2023 09:35-0500 Body height 172.7 cm [facility] Work Phone: [facility] 06-15-2023 09:35-0500 Body mass index (BMI) [Ratio] 33.85 kg/m2 [facility] Work Phone: [facility] 06-15-2023 09:35-0500 Body temperature 98.1 [degF] [facility] Work Phone: [facility] 02-12-2024 09:35-0500 Body weight 100.97 kg [facility] Work Phone: [facility] 03-09-2023 11:30-0500 Body height 172.72 cm Atilio Ball Other [facility] Other 03-09-2023 11:30-0500 Body mass index (BMI) [Ratio] 31.23 kg/m2 Atilio Ball Other [facility] Other 03-09-2023 11:30-0500 Body weight 93.17 kg Atilio Ball Other [facility] Other 03-09-2023 11:30-0500 Diastolic blood pressure 70 mm[Hg] Atilio Ball Other [facility] Other 03-09-2023 11:30-0500 Respiratory rate 12 /min Atilio Ball Other [facility] Other 03-09-2023 11:30-0500 Systolic blood pressure 106 mm[Hg] Atilio Ball Other [facility] Other 02-09-2023 14:45-0400 Body height 172.72 cm Atilio Ball Other [facility] Other 02-09-2023 14:45-0400 Body mass index (BMI) [Ratio] 31.05 kg/m2 Atilio Ball Other [facility] Other 02-09-2023 14:45-0400 Body weight 92.63 kg Atilio Ball Other [facility] Other 02-09-2023 14:45-0400 Diastolic blood pressure 70 mm[Hg] Atilio Ball Other [facility] Other 02-09-2023 14:45-0400 Respiratory rate 12 /min Atilio Ball Other [facility] Other 02-09-2023 14:45-0400 Systolic blood pressure 107 mm[Hg] Atilio Ball Other [facility] Other 07-22-2022 12:45-0400 Diastolic blood pressure 83 mm[Hg] DO Atilio Ball Work Phone: [facility] 07-22-2022 12:45-0400 Heart rate 60 /min DO Atilio Ball Work Phone: [facility] 07-22-2022 12:45-0400 Respiratory rate 16 /min DO Atilio Ball Work Phone: [facility] 07-22-2022 12:45-0400 SaO2% (BldA) [Mass fraction] 98 % DO Atilio Ball Work Phone: [facility] 07-22-2022 12:45-0400 Systolic blood pressure 124 mm[Hg] DO Atilio Ball Work Phone: [facility] 07-22-2022 10:31-0400 Body height 172.72 cm DO Atilio Ball Work Phone: [facility] 07-22-2022 10:31-0400 Body temperature 98.3 [degF] DO Atilio Ball Work Phone: [facility] 07-22-2022 10:31-0400 Body weight 93.89 kg DO Atilio Ball Work Phone: [facility] Encounters Encounter Date Encounter Type Care Provider Facility Start: 07-15-2023 End: 07-15-2023 ambulatory GI Elliott HILLS Not Available Start: 07-09-2023 End: 07-10-2023 ambulatory GI D HILLS Not Available Start: 07-06-2023 End: 07-06-2023 ambulatory GI D HILLS Not Available Start: 06-15-2023 End: 06-15-2023 ambulatory GI D HILLS Not Available Start: 06-15-2023 End: 06-15-2023 Patient encounter procedure Gi D Washington PA Work Phone: [facility] Comment on above: Bilateral wrist pain (Primary Dx); Bilateral hand numbness; Low back pain, unspecified back pain laterality, unspecified chronicity, unspecified whether sciatica present Start: 04-06-2023 End: 04-06-2023 ambulatory LYUDMILA THAKUR Not Available Start: 04-01-2023 End: 04-01-2023 ambulatory GI BENSON Not Available Start: 03-20-2023 End: 03-20-2023 ambulatory Atilio Alcocer Other [facility] Other Start: 03-20-2023 Telephone encounter Atilio ESCOBAR [facility] Start: 03-19-2023 End: 03-19-2023 ambulatory Atilio Leodan Other [facility] Other Start: 03-19-2023 Telephone encounter Atilio ESCOBAR G [facility] Start: 03-16-2023 End: 03-16-2023 ambulatory Atilio Alcocer Other [facility] Other Start: 03-16-2023 Telephone encounter Atilio Alcocer [facility] Start: 03-09-2023 End: 03-09-2023 ambulatory Atilio Alcocer Other [facility] Other Start: 03-09-2023 Office outpatient vi sit 15 minutes Atilio Alcocer [facility] Start: 02-16-2023 End: 02-16-2023 ambulatory Atilio Alcocer Other [facility] Other Start: 02-16-2023 Telephone encounter Atilio Alcocer [facility] Start: 02-09-2023 End: 02-09-2023 ambulatory Atilio Leodan Other [facility] Other Start: 02-09-2023 Encounter for genera l adult medical examination without abnormal findings Atilio Alcocer [facility] Start: 02-09-2023 Periodic preventive med est patient 40-64yrs Atilio Alcocer [facility] Start: 07-29-2022 End: 07-29-2022 ambulatory Imad Asaad Other [facility] Other Start: 07-29-2022 Telephone encounter Imad Asaad [facility] Start: 07-22-2022 Telephone encounter Atilio Alcocer [facility] Start: 07-22-2022 End: 07-22-2022 ambulatory Atilio Alcocer Facility:[facility] Start: 07-22-2022 End: 07-22-2022 Admission to same day surgery center DO Atilio Alcocer Work Phone: [facility] Work Phone: Start: 07-22-2022 End: 07-22-2022 ambulatory DO Atilio Alcocer Work Phone: [facility] Work Phone: Start: 07-03-2022 End: 07-03-2022 ambulatory Imad Asaad Other [facility] Other Start: 07-03-2022 Telephone encounter Imad Asaad [facility] [employer] Start: 06-26-2022 End: 06-26-2022 ambulatory ROSCOE LILI . Facility: Start: 03-03-2022 End: 03-04-2022 ambulatory ATILIO ALCOCER [facility] Start: 03-03-2022 End: 03-04-2022 Encounter for general adult medical examination without abnormal findings ATILIO ALCOCER [facility] Start: 03-03-2022 End: 03-03-2022 Subsequent hospital visit by physician Atilio Alcocer DO Work Phone: [facility] Start: 12-19-2020 End: 12-22-2020 ambulatory ANASTASIIA SALMERON [facility] Start: 12-19-2020 End: 12-21-2020 Subsequent hospital visit by physician Atilio Alcocer DO Work Phone: [facility] Procedures Date Procedure Procedure Detail Performing Clinician Start: 06-15-2023 Radex wrist complete minimum 3 views Gi Besnon PA Work Phone: Start: 07-22-2022 Esophagogastroduodenoscopy DO Atilio Abarca all Work Phone: Start: 03-03-2022 Comprehensive metabolic panel Atilio Abarca all DO Work Phone: Plan of Treatment Date Care Activity Detail Author Start: 04-07-2024 End: 04-07-2024 Patient encounter procedure 04/07/2024 11:20 AM EST Office Visit [facility] [address] [place] [id number] Lyudmila Thakur, POLICE ARTIST-DIGITAL MEASUREMENT ADVISOR [address] [place] [address] [facility] Start: 07-06-2023 End: 07-06-2023 Patient encounter procedure 07/06/2023 9:45 AM EST Office Visit [facility] [address] [place] [id number] Gi Benson PA [address] [place] [address] [facility] Start: 07-22-2022 [facility] Start: 12-02-2021 Influenza vaccination Flu vaccine (# 1) [email or web address] Start: 01-02-2021 Influenza vaccination [facility] Start: 10-29-2016 Lipid panel [facility] Prepared Response [facility] Start: 2008 Shingles Vaccine (1 of 2) Shingles Vaccine (1 of 2) [facility] Start: 2003 Screening for malign ant neoplasm of colon [facility] Start: 1977 DTaP/Tdap/Td vaccine (1 - Tdap) DTaP/Tdap/Td vaccine (1 - Tdap) [facility] Start: 1976 Hepatitis C screening Hepatitis C sc reen [facility] Start: 1973 HIV screening HIV screen [facility] Prepared Response [facility] Start: 1970 COVID-19 Vaccine (1) COVID-19 Vaccin e (1) [employer] Phone: Start: 1970 Depression Screen Depression Screen [facility] Start: 1958 COVID-19 Vaccine (#1) COVID-19 Vacci ne (#1) [facility] [employer] Start: 1958 Hepatitis C screening Hepatitis C sc reen [employer] Work Phone: End: 03-03-2022 Lipid panel [facility] Work Phone: Comment on above: Once for 1 Occurrenc es starting 03/03/2022 until 03/03/2022 Patient Education Hemorrhoids Esophagitis [facility] Work Phone: End: 03-03-2022 PSA screening [facility]: Comment on above: Once for 1 Occurrenc es starting 03/03/2022 until 03/03/2022 Immunizations Immunization Date Immunization Notes Care Provider Zachery carlisle 12-05-2019 tetanus and diphther ia toxoids, adsorbed, preservative free, for adult use (5 Lf of tetanus toxoid and 2 Lf of diphtheria toxoid) Atilio Alcocer Other [facility] Other 03-07-2015 tetanus and diphther ia toxoids, adsorbed, preservative free, for adult use (5 Lf of tetanus toxoid and 2 Lf of diphtheria toxoid) Atilio Alcocer Other [employer] Other Payers Date Payer Category Payer Self-pay 2022 Unknown [id number] 2022 Unknown [employer] [id number] 2022-Present [phone] [id number] [place] [id number] 2019 Private Health Insurance [id number]. [id number] 1959 Unknown [id number] 1958 Unknown [id number] 2.16.840.1.527693.3.579.2. 174 1958 Unknown [id number] 2.16.840.1.674677.3.579.2. 174 1958 Unknown [id number] 2.16.840.1.297114.3.579.2. 173 1958 Unknown [id number] 2.16.840.1.903143.3.579.2. 593 1958 Unknown [id number] 2.16.840.1.990144.3.579.2. 1259 1958 Unknown [id number] 2.16.840.1.187583.3.579.2. 1259 1958 Unknown [id number] 2.16.840.1.078760.3.579.2. 1259 1958 Unknown [id number] 2.16.840.1.432615.3.579.2. 1259 1958 Unknown [id number] 2.16.840.1.677938.3.579.2. 1259 1958 Unknown [id number] 2.16.840.1.932183.3.579.2. 1259 1958 Unknown [id number] 2.16.840.1.472290.3.579.2. 1259 1958 Unknown [id number] 2.16.840.1.055595.3.579.2. 1259 1958 Unknown [id number] 2.16.840.1.975457.3.579.2. 1259 1958 Unknown [id number] 2.16.840.1.332060.3.579.2. 1259 Medicare [id number] 2.16.840.1.941405.19 Unknown [id number] Unknown [id number] 2.16.840.1.531690.3.579.2. 531 Social History Date Type Detail Facility Start: 02-09-2015 End: 02-10-2023 Tobacco smoking status NHIS Never smoker [employer] Phone: Start: 02-09-2015 End: 06-15-2023 Alcohol intake Current drinker of alcohol (finding) [employer] Phone: Start: 1960 Sex Assigned At Not on file [facility] [employer] Phone: Start: 03-28-2023 End: 06-15-2023 Sex Assigned At [facility] Start: 1960 Sex Assigned At Male F [facility] Start: 02-10-2023 Tobacco use and exposure Smoke less tobacco non-user [facility] Start: 03-28-2023 End: 06-15-2023 History of Social function [facility] Frequency of Alcohol Consumption Not on file [facility] How many standard dr inks containing alcohol do you have on a typical day? 1 or 2 [facility] How often do you hav e 6 or more drinks on 1 occasion? Never [facility] Start: 03-28-2023 Alcohol Comment caffeine:1 -2 per we ek [facility] Start: 02-09-2023 Gender identity Identifies as male gender (finding) [facility] Start: 02-09-2023 Sexual orientation Choose not to dis close [facility] Goals Date Patient Goal Desired Activity /State Clinical Notes 07-22-2022 to 06-15-2023 JAMEY Simon - 06/15/2023 9:45 AM ESTPatient Instructions Note Date & Type Note Facility 06-15-2023 History of Presen t illness Narrative GENERAL HISTORY AND PHYSICAL: NAME: Rick Hernández : 1960 HISTORY OF PRESENT ILLNESS: Rick Hernández is an 63 y.o. male is here for orthopedic evaluation Left greater than right hand numbness associated with pain in the wrist. He did recently have EMG testing of both upper extremities and lower extremities with Dr. Walker. He was told that he has mild carpal tunnel symptoms in that the lower extremities did not really show any evidence of radicular symptoms. He is also having symptoms of spinal stenosis with bilateral leg weakness and stumbling when he walks distances. He has had his hips evaluated recently with Dr. Salmeron and was told that his hips did not show any evidence of arthritis. He has not diabetic he has not on blood thinning agents. PAST MEDICAL HISTORY: Past Medical History: Diagnosis Date Cellulitis of left foot 1993 Chronic neutropenia (CMS/HCC) Duodenitis Esophagitis GERD (gastroesophageal reflux disease) History of being hospitalized Observation for vertigo (r/o cardiac) Hyperplastic colonic polyp Schatzki's ring PAST SURGICAL HISTORY: Past Surgical History: Procedure Laterality Date HERNIA REPAIR Right 08/2008 inguinal hernia OTHER SURGICAL HISTORY 10/2005 [facility] SOCIAL HISTORY: Social History Occupational History Not on file Tobacco Use Smoking status: Never Smokeless tobacco: Never Vaping Use Vaping Use: Never used Substance and Sexual Activity Alcohol use: Yes Comment: caffeine:1 -2 per week Drug use: Never Sexual activity: Defer ALLERGIES: Allergies Allergen Reactions Promethazine Hallucinations and Unknown Metoclopramide Unknown Morphine Unknown MEDICATIONS: Current Outpatient Medications Medication Instructions acetaminophen (TYLENOL 8 HOUR) 650 mg, Oral, Every 8 hours PRN, Do not crush, chew, or split. Diclofenac 18 MG capsule Oral gabapentin (Neurontin) 100 MG capsule TAKE 1 CAPSULE BY MOUTH IN THE MORNING AND 1 CAPSULES AT BEDTIME omeprazole (PriLOSEC) [address] capsule REVIEW OF SYSTEMS: Review of Systems General: Denies appetite or significant weight change. Denies fever, chills or night sweats. Denies lightheadedness. ENT: Denies dry mouth, sore throat or swollen glands. Denies difficulty swallowing. Denies ear pain. Respiratory: Denies chest pain, SOB, cough or wheezing. Denies asthma or pneumonia symptoms. Cardiovascular: Denies CP or palpitations. No syncope or dyspnea on exertion. Gastrointestinal: Denies nausea or vomiting. Denies heartburn or abdominal pain. Denies diarrhea. Genitourinary: Denies frequent or painful urination. Musculoskeletal: See HPI for comments. Integumentary: Denies rash, lesion or skin infection. Neurologic: Denies dizziness, headache or seizure history. Vitals: Body mass index is 33.85 kg/m . PHYSICAL EXAM: Physical Exam Patient does not show any evidence of thenar eminence or interosseous muscle wasting of either hand. He does have positive grind test on the left negative on the right with basilar thumb pain. He has good function of both hands and loss of fine sensation and dexterity on the left. We will return for assessment of his lower extremities and back in 3 weeks for completeness. Maintains good mobility of the elbow with negative Tinel's bilaterally. He has mild Tinel's with assessment of the left wrist positive Phalen's bilaterally at 20 seconds. Normal Melvin's testing of both Hands XR wrist 3+ views right Imaging Result: AP lateral and oblique of the right wrist taken in the office today patient does have some arthritic findings tri-scaphoid region as well as early CMC joint with no other apparent collapse of the wrist or degenerative findings or acute fracture. XR wrist 3+ views left Imaging Result: AP lateral and oblique of the left wrist taken in the office today demonstrating more CMC arthritic findings. No acute fracture evidence of bony tumor Orders Placed This Encounter Procedures XR wrist 3+ views right Order Specific Question: Reason for exam: Answer: pain XR wrist 3+ views left Order Specific Question: Reason for exam: Answer: pain XR wrist 3+ views left Imaging Result: AP lateral and oblique of the left wrist taken in the office today demonstrating more CMC arthritic findings. No acute fracture evidence of bony tumor XR wrist 3+ views right Imaging Result: AP lateral and oblique of the right wrist taken in the office today patient does have some arthritic findings tri-scaphoid region as well as early CMC joint with no other apparent collapse of the wrist or degenerative findings or acute fracture. ASSESSMENT: Bilateral wrist pain Bilateral hand numbness Low back pain, unspecified back pain laterality, unspecified chronicity, unspecified whether sciatica present PLAN: Keep a note pad on what medicine dosing you take the prednisone and how your response to the discomfort is over the next 15 days. We will follow up in 3 weeks for imaging of her lumbar spine as well as symptom check of both hands and lower extremities. Continue your gabapentin but you may hold your diclofenac while taking the prednisone. Continue cock-up wrist splints for your nighttime symptom control if tolerated. JAMEY Siomn documented in this encounter [facility] 06-15-2023 Instructions JAMEY Simon - 06/15/2023 9:45 AM EST Keep a note pad on what medicine dosing you take the prednisone and how your response to the discomfort is over the next 15 days. We will follow up in 3 weeks for imaging of her lumbar spine as well as symptom check of both hands and lower extremities. Continue your gabapentin but you may hold your diclofenac while taking the prednisone. Continue cock-up wrist splints for your nighttime symptom control if tolerated. documented in this encounter [facility] 03-16-2023 Evaluation note Encounter Date Diagnosis Assessment Notes Mar, Lumbago with sciatica, right side (ICD-10 - M54.41) Mar, Lumbago with sciatica, left side (ICD-10 - M54.42) Mar, Dysesthesia (ICD-10 - R20.8) [facility] Other 11-06-2023 Evaluation note* Encounter Date Diagnosis Assessment Notes Treatment Notes Treatment Clinical Notes Mar, Lumbar back pain with radiculopathy affecting lower extremity (ICD-10 - M54.16) Recommend conservative treatment for now. Continue Tylenol 650 qid, Diclofenac 75 bid. The patient is instructed to avoid bending, twisting or lifting. They are to use intermittent heat and ice as needed. They may schedule a massage or gentle manipulation. Mar, Hoarseness of voice (ICD-10 - R49.0) Discussed rhinitis w/ PND and GERD. Instructed on treatment of underlying etiology. He is a life long nonsmoker. Referral to ENT for symptoms persisting > 4wks Mar, Benign prostatic hyperplasia with lower urinary tract symptoms (ICD-10 - N40.1) Avoid drinking prior to bedtime. Denies hematuria or dysuria. Discussed treatment options, declined for now Mar, Nocturia (ICD-10 - R35.1) [facility] Other 10-09-2023 Evaluation note* Encounter Date Diagnosis Assessment Notes Treatment Notes Treatment Clinical Notes Feb, Wellness examination (ICD-10 - Z00.00) Healthy diet and exercise. Reviewed age-appropriate preventive testing recommended. Feb, Hyperlipidemia type II (ICD-10 - E78.01) Instructed on diet and exerciseDiscussed the beneficial effects of lowering cholesterol in reducing the risk for cerebrovascular and cardiovascular disease. Feb, Gastroesophageal reflux disease with esophagitis without hemorrhage (ICD-10 - K21.00) Diet instructions: Smaller portions, avoid eating and laying flat, avoid eating or drinking prior to bedtime. Weight loss. Feb, Paresthesia (ICD-10 - R20.2) r/o metabolic abnormalities: ESR, B12, TSH, BS Feb, Lumbar spondylosis (ICD-10 - M47.816) The patient is instructed to avoid bending, twisting or lifting. They are to use intermittent heat and ice as needed. They may schedule a massage or gentle manipulation. They may safely use Tylenol as needed. Feb, Primary osteoarthritis of both hips (ICD-10 - M16.0) Feb, Screening PSA (prostate specific antigen) (ICD-10 - Z12.5) Yearly MICHI and PSA [facility] Other 03-21-2023 [facility] noteNo InformationNort[facility] Other Evaluation noteNo assessment information available [facility] Work Phone: Evaluation note* Diagnosis Bilateral wrist pain- Primary Bilateral hand numbness Disturbance of skin sensation Low back pain, unspecified back pain laterality, unspecified chronicity, unspecified whether sciatica present documented [facility] this [facility] Author Ollie Laguna [facility] July 22, 2022 11:46am Note Date/Time July 22, 2022 11: 46am [facility] [address] [place] [address] Gastroenterology H&P Signed Patient: Rick Hernández MR#: [id number] : 1960 Acct:[id number] Age/Sex: 62 / M Adm Date: 3 Loc: Room: Type: [facility] Attending Dr: Ollie Laguna MD Copies to: Atilio Alcocer,DO Ollie Laguna MD~ Date of Service: 07/22/2022 HISTORY & PHYSICAL: Patient's history with special attention to the cardiovascular, pulmonary systems and the current problem was reviewed with the patient immediately prior to the procedure. Present medications and doses reviewed in the EMR. Allergies and pertinent laboratory tests were also reviewedat this time in the EMR. The physical examination, as below, was then performed. Indication, assessment and HPI: 62-year-old man here for EGD for evaluation of heartburn and dysphagia and colonoscopy for colon cancer screening. Family history of GI malignancy? No PHYSICAL EXAMINATION Mouth and Pharynx : Moist mucus membranes, normal dentition Cardiac: Regular rate, regular rhythm Pulmonary: Clear to auscultation bilaterally, no wheezing Neurological: Alert and oriented x3, no focal deficits noted Abdomen: Abdomen soft, non-tender REVIEW OF SYSTEMS Constitutional: Denies malaise, fevers Cardiovascular: Denies chest pain, palpitations Respiratory: Denies shortness of breath, wheezing Gastrointestinal: Per HPI Genitourinary: Denies dysuria, polyuria Musculoskeletal: Denies joint swelling, joint stiffness Neurological: Denies numbness, tingling Integumentary: Denies rashes, skin lesions Endocrine: Denies fatigue, weight loss Written informed consent obtained from the patient. Risks (including but not limited to perforation, infection, bloating, bleeding, need for emergent surgeryand loss of life), benefits and alternatives explained and questions answered. The patient verbalized understanding. Based on history patient is an appropriate candidate for the procedure. Ollie Laguna M.D. Documented By: Ollie Laguna MD 07/22/22 1146 Signed By: <Electronically signed by Ollie Laguna MD> 07/22/22 1146 [facility] Work Phone: History general Narrative - Reported* Type Description Date Medical History Gastroesophageal ref lux disease with esophagitis without hemorrhage Medical History Paresthesia Medical History Other specified disorders of pig mentation Medical History Chronic leukopenia Medical History COVID Medical History Cellulitis of left lower extremi ty Medical History B12 deficiency Medical History Hyperlipidemia type II Medical History Hearing loss of left ear due to cerumen impaction Medical History Puncture wound of foot Surgical History inguinal hernia repair 10/2005 Surgical History colonoscopy, repeat 2013 2 Surgical History EGD 01/2014 Surgical History [facility] 2005 Hospitalization History see surgical history Vigno Other History general Narrative - Reported* Type Description Date Medical History Gastroesophageal ref lux disease with esophagitis without hemorrhage Medical History Paresthesia Medical History Other specified disorders of pig mentation Medical History Chronic leukopenia Medical History COVID Medical History Cellulitis of left lower extremi ty Medical History B12 deficiency Medical History Hyperlipidemia type II Medical History Hearing loss of left ear due to cerumen impaction Medical History Puncture wound of foot Surgical History inguinal hernia repair 10/2005 Surgical History colonoscopy, repeat 2013 2 Surgical History EGD 01/2014 Surgical History [facility] 2005 Surgical History EGD w/ esophagitis 07/2022 Surgical History Colonoscopy, repeat in 10 years 07/2022 Hospitalization History see surgical history [facility]o Other Hospital Discharge instructions Additional Instructions DISCHARGE INSTRUCTIONS FOR UPPER ENDOSCOPY WHAT TO EXPECT: - You may feel full, gassy or cramping after your procedure. In some cases, this may be from a few hours to a day. Walking may help relieve the discomfort. - Your throat may feel sore today from the scope that the doctor passed through your throat to visualize your stomach. Take a throat lozenge or suck on ice to ease the discomfort. - You may notice some streaks of blood in your sputum if the doctor has taken a biopsy. - You should begin to recover from anesthesia within 1 hour of the procedure, however may feel groggy for the next 24 hours. DO's AND DON'Ts: - Call your doctor right away if you have a hard abdomen, severe pain, vomiting or if you cough up large amounts of blood. - Call your doctor if you develop any rashes, hives or difficulty breathing. - If you take 81 mg aspirin for your heart it is safe to resume this medication. - If you take other blood thinner medications your doctor will instruct you when these can safely be resumed. - Do NOT drive for 24 hours. - Do NOT operate machinery such as power tools, lawn mowers, snow blowers, sewing machines, etc. for 24 hours. - Avoid alcoholic beverages and drugs for allergies, nerves, or sleep. - Do NOT stay alone. Do NOT leave your child unattended. - Do NOT make important personal or business decisions or sign any legal documents. - Eat solid foods and drink liquids in smaller amounts than usual until normal appetite returns. If you should experience an upset stomach, liquids high in sugar content (soda, Uriel-Aid, non-acid juices) are recommended. - Do NOT smoke. - Do take it easy today. You need not stay in bed, but avoid strenuous activities such as jogging or working out. DISCHARGE INSTRUCTIONS FOR COLONOSCOPY WHAT TO EXPECT: - You may feel full, gassy or cramping after your procedure. In some cases, this may be from a few hours to a day. Walking may help relieve the discomfort. - You should begin to recover from anesthesia within 1 hour of the procedure, however may feel groggy for the next 24 hours. DO's AND DON'Ts: - Call your doctor right away if you have a hard abdomen, sever pain, are passing lots of bright red blood or clots. - Call your doctor if you develop any rashes, hives or difficulty breathing. - Let your doctor know if you have not had a bowel movement by 3 days after your procedure. - If you take 81 mg aspirin for your heart it is safe to resume this medication. - If you take other blood thinner medications your doctor will instruct you when these can safely be resumed. - Do NOT drive for 24 hours. - Do NOT operate machinery such as power tools, lawn mowers, snow blowers, sewing machines, etc. for 24 hours. - Avoid alcoholic beverages and drugs for allergies, nerves, or sleep. - Do NOT stay alone. Do NOT leave your child unattended. - Do NOT make important personal or business decisions or sign any legal documents. - Eat solid foods and drink liquids in smaller amounts than usual until normal appetite returns. If you should experience an upset stomach, liquids high in sugar content (soda, Uriel-Aid, non-acid juices) are recommended. - You can resume normal activities tomorrow. FOLLOW UP & RECOMMENDATIONS: -Continue omeprazole 40 mg daily 30 minutes for breakfast. -Notify the doctor if you have any problems. -Repeat colonoscopy in 5 years -Follow up with PCP. - Office number [phone]. 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 Expl anation ACP-Advance Directive ACP-Power of Director Trading Advance Directive Response Recorded Date/ Time Advance Directives No July 21, 2 023 9:54am Summary Purpose Family History No Family History Records Found Relationship Condition Age at Onset Recorded Date/T katharine Not Specified No pertinent family history Unknown Chief Complaint and Reason for Visit Chief Complaint GERD, screening Additional Source Comments (unrecognized sect ion and content) No Status Records FoundNo Status Records FoundNo Status Records FoundNo Status Records FoundNo Status Records Found INFORMATION SOURCE (unrecogn ized section and content) DATE CREATED AUTHOR 12/22/2020 [facility] DATE CREATED AUTHOR AUTHOR'S ORGANIZ ATION 03/04/2022 [facility] DATE CREATED AUTHOR AUTHOR'S ORGANIZ ATION 06/30/2022 [facility] DATE CREATED AUTHOR AUTHOR'S ORGANIZ ATION 08/03/2022 [facility] DATE CREATED AUTHOR AUTHOR'S ORGANIZ ATION 07/16/2023 [facility] dicdc Specialists [facility] Care Teams (unrecognized sec tion and content) Alum Mixer Relationship Specialty Start Date End Date Atilio Alcocer DO PCP - General 02/09/15 Team Status: Active Member Role Status Dates Atilio Alcocer DO Primary Care Provider Active Team Status: Inactive Member Role Status Dates Ollie Laguna MD Attending Provider Active Atilio Alcocer DO Primary Care Provider Active Alum Mixer Relationship Specialty Start Date End Date Atilio Alcocer MD [address] [place] [address] PCP - General Internal Medicine 02/10/23 REASON FOR VISIT (unrecogniz ed section and content) Reason Comments Follow-up FOR RECORDS PERTAINING TO PATIENTS WHO ARE OR HAVE BEEN ENROLLED IN A CHEMICAL DEPENDENCY/SUBSTANCEABUSE PROGRAM, SOME INFORMATION MAY BE OMITTED. This clinical summary was aggregated from multiple sources. Caution should be exercised in using it in the provision of clinical care. This summary normalizes information from multiple sources, and as a consequence, information in this document may materially change the coding, format and clinical context of patient data. In addition, data may be omitted in some cases. CLINICAL DECISIONS SHOULD BE BASED ON THE PRIMARY CLINICAL RECORDS. [facility]. provides no warranty or guarantee of the accuracy or completeness of information in this document.
[2024-02-22 13:05] LABS: Basophils Percent Auto 0.5 % (0.2-2.0); Eosinophils Absolute Auto 0.1 10^3/uL (0.0-0.7); Eosinophils Percent Auto 3.7 % (0.9-7.0); Hematocrit 42.1 % (42.0-54.0); Hemoglobin 14.4 g/dL (14.0-18.0); Immature Granulocytes Abs Auto 0.01 10^3/uL (0.00-0.03); Immature Granulocytes Pct Auto 0.3 % (0.0-0.5); Lymphocytes Absolute Auto 1.2 10^3/uL (1.2-3.8); Mean Corpuscular HGB Conc 34.2 g/dL (29.9-35.2); Mean Corpuscular Hemoglobin 32.1 pg (25.9-34.0); Mean Platelet Volume 10.2 fL (9.5-13.5); Monocytes Absolute Auto 0.4 10^3/uL (0.3-0.8); Monocytes Percent Auto 10.6 % (1.7-12.0); Neutrophils Percent Auto 53.9 % (43.0-75.0); Platelet Count 196 10^3/uL (150-450); Red Blood Count 4.48 10^6/uL (4.70-6.10); Red Cell Distribution Width 12.5 % (11.0-15.0); White Blood Count 3.8 10^3/uL (4.0-11.0)
[2024-02-22 13:12] LABS: Alanine Aminotransferase 16 U/L (16-63); Albumin Globulin Ratio 0.9; Albumin Level 3.3 g/dL (3.4-5.0); Alkaline Phosphatase 76 U/L (46-116); Aspartate Amino Transferase 14 U/L (15-37); BUN Creatinine Ratio 10.4; Bilirubin Total 0.5 mg/dL (0.2-1.0); Calcium 8.8 mg/dL (8.5-10.1); Chloride 105 mmol/L (98-107); Chol HDL Ratio 4.1; Cholesterol 195 mg/dL (<=200); Estimated GFR (African America >60 (>=60 mL/min/1.73m^2); Estimated GFR (Non-African Ame >60 (>=60 mL/min/1.73m^2); Globulin 3.7 g/dL; Glucose 92 mg/dL (74-106); HDL Cholesterol 47 mg/dL (40-60); LDL Cholesterol Calculated 131.4 mg/dL; Sodium 144 mmol/L (136-145); Triglycerides 83 mg/dL (<=150); VLDL CHOLESTEROL 16.6 mg/dL
== END 2024-02-22 12:14 | disposition home or self-care (01) ==
LOC: LAB 12:15
PROVIDERS: PCP Internal Medicine; Visit Provider Internal Medicine
DX: Z00.00 Encounter for general adult medical examination without abnormal findings (principal); Z12.5 Encounter for screening for malignant neoplasm of prostate
CPT/HCPCS: 36415; 80053; 80061; 85025; G0103

== ENCOUNTER 2025-04-19 10:43 | Outpatient (OUT) | payer OTHER, SELFPAY ==
--- OUTSIDE RECORDS SUMMARY | 2025-04-10 11:15 | XMS_ITS | Encounter Summary ---
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 ATTORNEY-SUPERVISOR [employer] [address] [place] [address] Seborrheic keratosis; Melanocytic nevus, unspecified location; Lentigines; Capillary angioma; Actinic keratosis Social History Tobacco UseTypesPacks/DayYears UsedDateSmoking Tobacco: NeverSmokeless Tobacco: NeverAlcohol UseStandard Drinks/WeekCommentsYes1 (1 standard drink = 0.6 oz pure alcohol)caffeine:1 -2 per weekAUDIT-CAnswerDate RecordedFrequency of Alcohol ConsumptionNot on file03/28/2023Q2: How many drinks containing alcohol do you have on a typical day when you are drinking?1 or Q3: How often do you have six or more drinks on one occasion?Never03/28/2023Sex and Gender InformationValueDate RecordedSex Assigned at FpxjeLcbb09/09/2023 9:40 AM EDT Legal LxhCwrz1807/16/2022 7:28 PM EDTGender WvpedmekMiyb65/09/2023 9:40 AM EDT Sexual OrientationChoose not to zflanylx45/09/2023 9:40 AM EDTdocumented as of this encounter Progress Notes * Lyudmila Thakur, EMPLOYEE BENEFITS ATTORNEY-SUPERVISOR [employer] - 04/10/2025 11:15 AM EST Skin Check Location: Patient requests a full body skin examination Dermatologic history: history of Actinic Keratosis, no history of skin cancer, no history of atypical moles, no family history of melanoma Last visit: 1 year ago Established patient Lesions: Location: face Duration: months Associated symptoms: red, rough Treatments: none All pertinent medical history, medications, and allergies were reviewed. General Exam: alert, oriented to person, place, and time, normal affect, well appearing Scalp, Examined Right leg Examined Head, Face Examined Left leg Examined Neck Examined Right foot Examined Chest Examined Left foot Examined Back Examined Buttocks Examined Abdomen Examined Digits,nails: Examined Right arm Examined Left arm Examined Hands Examined Skin Exam 1. SEBORRHEIC KERATOSIS Generalized Stuck on verrucous, variably pigmented papules and plaques. Patient was counseled regarding these benign growths. Removal is normally not necessary, but they may be removed if they are symptomatic or for cosmetic reasons. 2. MELANOCYTIC NEVUS, UNSPECIFIED LOCATION Trunk Scattered benign appearing, regular brown to light brown melanocytic papules and macules with similar morphology Counseled regarding these benign growths. Rarely, a nevus can develop into malignant melanoma, so any changing nevi should be promptly re-evaluated. 3. LENTIGINES Generalized Scattered luther macules in sun-exposed areas. The patient was informed that lentigines are benign pigmented lesions that occur on sun-exposed andsun-damaged skin. No treatment is necessary. Recommended regular use of broad spectrum sunscreen SPF 30 or higher 4. CAPILLARY ANGIOMA Trunk Scattered ocampo-red papule(s). The patient was informed that angiomas are benign growths on the the skin. No treatment is necessary. 5. ACTINIC KERATOSIS (6) Dorsum of Nose, Left Buccal Cheek, Left Forehead, Left Sabianist (2), Right Sabianist Erythematous scaly papules Patient was counseled regarding these sun-induced growths that can develop into squamous cell carcinoma if left untreated. Discussed treatment with cryotherapy. It was emphasized that any treated lesions that fail to resolve should be re- evaluated. Cryotherapy performed today; see procedure note Diagnosis: Actinic keratosis Indication: Precancerous Location: see skin exam Consent: Verbal consent was obtained and risks were discussed, including, but not limited to risks of scarring, darker or sourcing engineer pigmentary changes, recurrence, incomplete removal and infection. Method: Liquid nitrogen was used to treat the lesion(s) with two 5-10 second freeze-thaw cycles. Eyes were shielded using cotton pad during procedure Number of lesions treated: 6 Post-procedure instructions: Instructions were given orally and in writing. The office will be contacted if the lesion fails to resolve despite treatment, or if a side effect develops such as abnormal crusting, scabbing, redness or tenderness - Cryotherapy, skin lesion - Dorsum of Nose, Left Buccal Cheek, Left Forehead, Left Sabianist (2), Right Sabianist Next Visit: 1 year, skin check documented in this encounter Plan of Treatment DateTypeDepartmentCare Team (Latest Contact Info)Ivhsvtsgttj58/10/2026 10:35 AM ESTOffice Visit [facility] [address] [place] [phone] Lyudmila Thakur APRN-CNP [address] [place] [address] documented as of this encounter Procedures Procedure NamePriorityDate/TimeAssociated DiagnosisCommentsCRYOTHERAPY SKIN NUOQUELsqaqem18/08/2025 11:12 AM EST Actinic keratosis documented in this encounter Results * Cryotherapy, skin lesion (04/10/2025 11:12 AM EST) Narrative Authorizing ProviderResult TypeResult StatusNatalie Aby DARDENDERM PROCEDURE ORDERABLESFinal Result documented in this encounter Visit Diagnoses Diagnosis Seborrheic keratosis Melanocytic nevus, unspecified location Lentigines Capillary angioma Nevus, non-neoplastic Actinic keratosis documented in this encounter Care Teams Team MemberRelationshipSpecialtyStart [place] [address] [place] [phone] PCP - GeneralInternal Hjzeilli43/10/23documented as of this encounter
--- OUTSIDE RECORDS SUMMARY | 2025-04-12 09:44 | XMS_ITS | Continuity of Care Document ---
Author Organization [facility] Address [address] [place] [address] Phone Care Team Providers Care Document Improvement Specialist Name Role Phone Atilio Alcocer DO Primary Care Provider Atilio Alcocer DO Attending Provider Care Teams Patient Care Team Team Status: Active Member Role/Relationship Status Dates Atilio Alcocer DO Primary Care Provider Active Patient Care Team Team Status: Inactive Member Role/Relationship Status Dates Atilio Alcocer DO Primary Care Provider Active Start: April 12, 2025 End: April 12enjacolt Alcocer DOAttending ProviderActiveStart: April 12, 2025 End: April 12, 2025 Chief Complaint and Reason for Visit Chief Complaint Admit Date Wellness April 12, 2025 1:52pm Reason for Visit Admit Date Erectile dysfunction April 12, 2025 1:52pm GERD (gastroesophageal reflux disease) D ec2024 1:52pm Hypercholesterolemia April 12, 2025 1:52pm Lumbosacral spondylosis with radiculopat hy April 12, 2025 1:52pm Obesity April 12, 2025 1:52pm Screening PSA (prostate specific antigen ) April 12, 2025 1:52pm Wellness examination April 12, 2025 1:52pm Allergies, Adverse Reactions, Alerts Allergen Type Severity Reaction Last Updated Verified Status Comments promethazine Allergy Unknown Hallucinating April 12, 2025 1:55pm Yes Active Onset Date: 12/27/2013 Social History Smoking Status Status Start Date End Date Date of Observa tion Never smoked tobacco (finding) July 22, 2022 10:35am Observation Status Observation Response Date of Response Legal Sex [facility] (finding) [facility] 1959 Family History Relationship Condition Age at Onset Recorded Date/T katharine Not Specified No pertinent family history Unknown fatherMalignant neoplasmUnknownDeceasedUnknownmotherDiabetes mellitusUnknown Problems Active Problems Problem Diagnosis/Recorded Date Onset Date Stat Lumbosacral spondylosis with radiculopathy September 24, 2023 10:51am Unknown Active Screening PSA (prostate spec ific antigen) February 17, 2024 10:08am Unknown Active Erectile dysfunction February 17, 2024 10:19am Unknow n Active Wellness examination February 17, 2024 10:07am Unknow n Active Hypercholesterolemia April 12, 2025 2:32pm Unknow n Active GERD (gastroesophageal reflux disease) September 24, 2023 10:52am Unknown Active Carpal tunnel syndrome on both sides September 24, 2023 10 :51am Unknown Active Obesity February 17, 2024 10:12am Unknown A ctive Medications Medication Status Dose Units Route Directions Qty Days Refills S tart Date Stop Date End Date Reason(s) Instructions Adherence Prednisone 20 mg tablet Discontinued 20 MG PO As Directed 18 2023 11:00pmMa2023 3:25pm1 tab tid w/ food x 3 days, then bid w/ food x 3 days, then qd w/ food x 3 daysGabapentin 100 mg capsule Rqlhnehjnkhd901XWSLPdcwa acjnk362NagsuJuly 30, 2023 11:00pmSeptember 24, 2023 10:48am Omeprazole 40 mg capsule,delayed release(DR/EC)Jebwqavkkwcj76QHJWMivdy71520Bps 2023 3:00pmMarch 21, 2024 6:56amGabapentin 300 mg capsuleDiscontinued 300MGPOTwice sfkba810074Rrbb 2023 8:45amDecember 2023 3:31pm Meloxicam 15 mg tabletDiscontinued0.ROUTE.VKSHDEA473QmahqhfaMarch 16, 2024 6:51am September 11, 2024 4:21pmTAKE 1 TABLET BY MOUTH EVERY DAYOmeprazole 40 mg capsule,delayed release(DR/EC)Discontinued0.ROUTE.YYYZXAF397UlqddeboMarch 21, 2024 6:56amAugust 2024 6:44amTAKE 1 CAPSULE BY MOUTH EVERY DAYGabapentin 300 mg ijqkaztVkcayxxjvdlr520ZSCYKjtzu nncaq632517Nmrfgqxf 2023 3:31pmJuly 2024 3:43pmMeloxicam 15 mg tabletDiscontinued0.ROUTE.XHHIDJU340ZeoSeptember 11, 2024 4:21pmJune 2024 5:41pmTAKE 1 TABLET BY MOUTH EVERY DAYMeloxicam 15 mg sojmngMyiwonsoxldy63HEDSPokwv56066Nfga 18th, 2025 5:41pmJune 2024 1:28pm Celecoxib (Celebrex) 200 mg fofvzdmOuvcivqhwlbi291CIZWYqiqvIsll 2024 11:00pmJune 2024 4:12pmCelecoxib (Celebrex) 200 mg jzjznogTjgdol689MYYT Kwpvn32411Yyza 25th, 2025 4:11pmComplies with drug therapyGabapentin 300 mg aqmmpxnAioili988HKDEKyhbx btmif607471Nqjf 2024 3:42pmComplies with drug therapyOmeprazole 40 mg capsule,delayed release(DR/EC)Active0.ROUTE.VYMQIEH360 December 09, 2024 6:44amTAKE 1 CAPSULE BY MOUTH EVERY DAYComplies with drug therapyOmeprazole 40 mg capsule,delayed release(DR/EC)Dvaclykkahlj01GAKNCylvb July 21, 2022 11:00pmMay 2023 3:01pmDiclofenac Sodium 75 mg tablet,delayed release (DR/EC)Xnbjbhcenugf00NBENZzhfu daily as needed for pain90 901May 2023 11:00pmOctober 2023 9:37amGabapentin 300 mg capsule Hnhduzwwpufs906YTQDVipij ieqhe525973Sst 23rd, 2024 10:48amJune 2023 8:45am Meloxicam 15 mg qspbgeZpoemcuyhzjw31GKPUGxqvl77174Xqnxjhh 15th, 2024 11:00pm March 16, 2024 6:51amSildenafil 100 mg imxltfFnvrlr124BSTRLdgeh as needed for sexual iufpbuws5240Oujlili 15th, 2024 11:00pm1/2 to 1 tablet, administer 30 minutes to 4 hours before activityComplies with drug therapyPantoprazole 40 mg tablet,delayed release (DR/EC)Qbtveo12EGUNFyojt98553Fntqijlc 10th, 2025 12:00am Complies with drug therapy Immunizations Immunization Event Date Not Given Reason Dose Number Back Tender Lot Number Reason(s) Given Vaccine Information Statement (VIS) Detail Administration Location Tetanus, Diphtheria adult, 5 Lf pres free abs No vember 2014 Tetanus, Diphtheria adult, 5 Lf pres free absAugust 2019 Vital Signs Vital Reading Result Reference Range Collection Date/Time Height 68 [in_i] April 12, 2025 1:60trMaomap51.12 kgDece2024 1:58pmHeart Rate74 /jex03-271Xjsfelvu 10th, 2025 1:58pmRespiratory rate12 /bnq05-26Uuiebuki 10th, 2025 1:58pmBP Geyortaq286 mm[Hg]100-140Dece2024 1:58pmBP Domznimik11 mm[Hg]60-100December 2024 1:58pmBMI (Body Mass Index)31.5 kg/i7EpmzgjzyApril 12, 2025 1:58pm Advance Directives Advance Directive Response Recorded Date/ Time Advance Directives No July 21 023 8:54am Insurance Providers Guarantor Rick Servin Address [address] [place] [address] [address] [facility] [id number] Info.Home Phone: Payer Group Member ID Coverage Type Subscriber Relationship to Subscriber Effective Date Expiration Date [facility] Id: [id number] Health Id: [id number] Mac Servin Id: [id number] [address] [place], [place] [id number] Home Phone: Email: [email or web address] Agent [email or web address] (CAP) Encounters Encounter Location(s) Arrival/Admit Date Discharge/Departure Date Discharge/Departure Disposition Provider(s) Departed Physician/ Provider Office Visit -[facility] April 12, 2025 1:52pm April 12, 2025 2:43pm Discharged to home care or self care (routine discharge) Atilio Alcocer DO Recent Diagnosis Onset Date Admit Date Erectile dysfunction Unknown April 122024 1:52pm GERD (gastroesophageal reflux disease) Unknown April 12, 2025 1:52pm Hypercholesterolemia Unknown April 122024 1:52pm Lumbosacral spondylosis with radiculopathy Unkno wn April 12, 2025 1:52pm Obesity Unknown April 12, 2 025 1:52pm Screening PSA (prostate specific antigen) Unknow n April 12, 2025 1:52pm Wellness examination Unknown April 122024 1:52pm Assessments Diagnosis Onset Date Resolution Status Admit Date Erectile dysfunction acuteDe2024 1:52pmGERD (gastroesophageal reflux disease)acute April 12, 2025 1:52pmHypercholesterolemiaacuteDeceer 2024 1:52pm Lumbosacral spondylosis with radiculopathyacuteDeceer 2024 1:52pmObesity acuteDe2024 1:52pmScreening PSA (prostate specific antigen)acute April 12, 2025 1:52pmWellness examinationacuteDe2024 1:52pm Plan of Treatment Author Atilio Alcocer [facility] HospitalAuthoredApril 12, 2025 2:38pmI have instructed this patient on the recommended lifestyle changes, which includes a low fat, high fiber diet along with a regular exercise routine. I have also reviewed the recommended age-appropriate preventive testing for this patient. I have also reviewed the recommended vaccines for their age and risk factors. I have instructed this patient to avoid lying flat after eating.?? I have also recommended to avoid eating 2 hours prior to bedtime.?? They were also informed that smaller, frequent meals may be better tolerated. I have discussed additional treatment options for persistent symptoms, which includes: weight loss, H2 blockers and PPI. I have also instructed them to notify the office with any pain or difficulty swallowing. Trial of different PPI Stressed importance of avoid large meals and lying flat after eating I have instructed this patient to avoid bending, twisting or lifting. I have also instructed on use of intermittent heat and ice as needed. They may schedule a massage or gentle manipulation. I instructed them on the safe use of Tylenol, Lidocaine and stretching exercises. I informed them of alternative modes of treatment for severe pain, which may include referral to physical therapy or pain management. Discussed treatment options - injections have helped - taking Gabapentin bid and Celebrex c/o brain fog and sedation, suggested decreasing Gabapentin to q HS I have instructed this patient on a low-fat, high-fiber diet.?? I have also instructed them to reduce calories, portions sizes, sweet drinks and snacks.?? I have also recommended they exercise for 30 minutes, 3-5 times weekly. They are aware of the comorbid conditions associated with excessive weight: Diabetes, HTN, Hyperlipidemia, CAD and arthritis. Discussed etiology and treatment He has no contra indications for use of Sildenafil. Rx written w/ instructions to use 1/2 - 1 as needed. Aware of hypotension, flushing and headaches I have recommended yearly PSA testing. I have informed him that the PSA can be elevated w/ cancer, infection and enlarged prostates. I have explained to the patient, that If his PSA is elevated, while there are many causes, referral will be recommended to r/o cancer. He would be referred to Urology, who may recommend an MRI, TRUS/bx or possibly continued monitoring. He is agreeable to this plan of action PSA: 1.3 - 02/2024, I have instructed this patient on a low fat, high fiber diet and exercise. I have discussed the primary and secondary prevention benefits attributed to lowering LDL cholesterol. I have also discussed the medical treatment of elevated cholesterol, which is based on the 10 year ASCVD risk. Future Tests Future scheduled test information is unavailable Pending Tests Test Name Ordered Date Scheduled Date Comprehensive Metabolic Panel April 12 2:29pm Future Visits Future appointment information is unavailable Future Procedures Procedure Name Ordered Date Scheduled Date Complete Blood Count Auto Diff April 12 2:29pm Lipid PanelDecember 2024 2:29pmPSA Screen (Yearly Only)April 12, 2025 2:29pm Future Medications Future medication information is unavailable Patient Instructions Patient instructions are unavailable
--- OUTSIDE RECORDS SUMMARY | 2025-04-19 10:49 | XMS_ITS | Clinical Summary ---
Author Organization [facility] Address [address] [place] [address] Care Team Providers Care Butcher Name Role Phone Atilio Alcocer DO Primary Care Provider [phone] Allergies Active AllergyReactionsCriticalityNoted DateCommentsMetoclopramideUnknown 04/01/20236998QftaycygXylzdvy50/09/2015PromethazineHallucinations,UnknownMedium 02/09/2015 Medications MedicationSigDispense QuantityRefillsLast FilledStart DateEnd DateStatus omeprazole (PriLOSEC) [address] capsule 02/08/2023ctive Diclofenac 18 MG capsule Take by mouth.01/31/2023ctive acetaminophen (Tylenol 8 Hour) 650 MG ER tablet Take 650 mg by mouth every 8 (eight) hours if needed for mild pain. Do not crush, chew, or split.Active gabapentin (Neurontin) 300 MG capsule Indications:ParesthesiaTAKE 1 CAPSULE BY MOUTH IN THE MORNING AND 1 CAPSULES AT BEDTIME 60 capsule ctive sildenafil (Viagra) 100 MG tablet TAKE 1/2-1 TABLET 30 MINUTES TO 4 HOURS BEFORE SEXUAL ACTIVITY NEEDED 02/17/2024ctive Active Problems ProblemNoted DateDiagnosed RkcgOstuzxixlvn89/06/2024urning vbvupafkt86/06/2024 Paresthesia of skin09/07/2023arpal tunnel syndrome of left wrist09/07/2023 Wtbnuzqlpuq95/06/2024rimary owqgxnrv50/06/2024 Encounters DateTypeDepartmentCare EjdkEfsvulrgksz04/08/2025 11:15 AM ESTOffice Visit [facility] [address] [place] [phone] Lyudmila Thakur, COMPENSATOR WORKER-TROUBLE SHOOTING MECHANIC Seborrheic keratosis; Melanocytic nevus, unspecified location; Lentigines; Capillary angioma; Actinic ovgylhlsa66/08/2025amboo flowsheet [facility] [place] [facility] [address] [place] [phone] Lyudmila Thakur APRN-TROUBLE SHOOTING MECHANIC 04/10/2025Travelfrom Last 3 Months Family History Medical HistoryRelationNameCommentsCancerFatherKidney diseaseFatherAlzheimer's diseaseMotherDiabetesMotherRelationNameStatusCommentsFatherDeceasedMother Social History Tobacco UseTypesPacks/DayYears UsedDateSmoking Tobacco: NeverSmokeless Tobacco: Never Tobacco Cessation:Counseling Given: Not Answered Alcohol UseStandard Drinks/WeekCommentsYes1 (1 standard drink = 0.6 oz pure alcohol)caffeine:1 -2 per weekAUDIT-CAnswerDate RecordedFrequency of Alcohol ConsumptionNot on file03/28/2023Q2: How many drinks containing alcohol do you have on a typical day when you are drinking?1 or Q3: How often do you have six or more drinks on one occasion?Never03/28/2023Sex and Gender InformationValueDate RecordedSex Assigned at YainzZlgw36/09/2023 9:40 AM EDT Legal JumConp8707/16/2022 7:28 PM EDTGender QicbakfbQhix09/09/2023 9:40 AM EDT Sexual OrientationChoose not to iioogfod96/09/2023 9:40 AM EDT Last Filed Vital Signs Vital SignReadingTime TakenCommentsBlood Xgqfrhpx209/80005/20/2023 9:33 AM EST Pulse--Kzcagvlwbgl87.7 ??C (98.1 ??F)07/15/2023 12:54 PM EDTRespiratory Rate-- Oxygen Saturation--Inhaled Oxygen Concentration--Sxduvw610 kg (222 lb)07/15/2023 12:54 PM MZBSunlzn304.7 cm (5' 8 )07/15/2023 12:54 PM EDTBody Mass Index33.75 07/15/2023 12:54 PM EDT Plan of Treatment DateTypeDepartmentCare Team (Latest Contact Info)Lcokwddsjxu34/10/2026 10:35 AM ESTOffice Visit [facility] [place] [facility] [address] [place] [address] OfeLyudmila, COMPENSATOR WORKER-TROUBLE SHOOTING MECHANIC [address] [place] [address] Health MaintenanceDue DateLast DoneCommentsCT Olqakxdavfck1958Colonoscopy 1958Colorectal Cancer Hxowudpwf1958FIT-DNA1958FIT1958 FOBT1958 1703Xnayiwfukizyc1958Pneumococcal Vaccine: 65+ Years (1 of 1 - PCV)2008COVID-19 Vaccine ( season)503/, 09/14/2020, 08/17/2020Influenza Vaccine (#1)2025 Procedures Procedure NamePriorityDate/TimeAssociated DiagnosisCommentsCRYOTHERAPY SKIN XPCGDXGfkoejl89/08/2025 11:12 AM EST Actinic keratosis from Last 3 Months Results * Cryotherapy, skin lesion (04/10/2025 11:12 AM EST) Narrative Authorizing ProviderResult TypeResult StatusNatalie A Ofe COMPENSATOR WORKER-CNPDERM PROCEDURE ORDERABLESFinal Result from Last 3 Months Insurance Care Teams Team MemberRelationshipSpecialtyStart DateEnd Date Atilio Alcocer DO [address] [place] [address] PCP - GeneralInternal Dcjaahmm01/10/23
--- OUTSIDE RECORDS SUMMARY | 2025-04-19 10:49 | XMS_ITS | Clinical Summary ---
Author Organization [facility] Address [address], [address] [place] [address] Care Team Providers Care Furnace Builder Name Role Phone Atilio Alcocer DO Primary Care Provider [phone] Allergies Active AllergyReactionsCriticalityNoted MicgHcgbpvjlPtomgorr16/09/2015 Promethazine Hcl02/09/2015 Social History Tobacco UseTypesPacks/DayYears UsedDateSmoking Tobacco: NeverAlcohol UseStandard Drinks/WeekCommentsYes0 (1 standard drink = 0.6 oz pure alcohol)occSex and Gender InformationValueDate RecordedSex Assigned at BirthNot on fileLegal Sex Male06/15/2012 11:41 PM ESTGender IdentityNot on fileSexual OrientationNot on file Last Filed Vital Signs Vital SignReadingTime TakenCommentsBlood Xboumemm278/8110 10:17 PM EDT Jdxqu693402/09/2015 10:52 PM OYMBxfronylqyo70.9 ??C (96.7 ??F)02/09/2015 7:22 PM EDTRespiratory Bvgu1105 10:52 PM EDTOxygen Nqehtdlcdl86%02/09/2015 10:52 PM EDTInhaled Oxygen Concentration--Odcbkn87.7 kg (200 lb)02/09/2015 7:22 PM EDT Lrkjsd392.7 cm (5' 8 )02/09/2015 7:22 PM EDTBody Mass Index30.411 7:22 PM EDT Plan of Treatment Not on file Care Teams Team MemberRelationshipSpecialtyStart DateEnd Date Atilio Alcocer DO [facility]02/09/15
--- OUTSIDE RECORDS SUMMARY | 2025-04-19 10:49 | XMS_ITS | Encounter Summary ---
Author Organization [facility] Address [address] [place] [address] Care Team Providers Care Foam Rubber Curer Name Role Phone Atilio Alcocer Primary Care Provider [phone] Encounter Details DateTypeDepartmentCare Team (Latest Contact Info)Lacjtzvvndx98/08/2025Travel Social History Tobacco UseTypesPacks/DayYears UsedDateSmoking Tobacco: NeverSmokeless [...] occasion?Never03/28/2023Sex and Gender InformationValueDate RecordedSex Assigned at YntrbXkgc30/09/2023 9:40 AM EDT Legal TfzLlvi8507/16/2022 7:28 PM EDTGender QfgzpshiRxjs00/09/2023 9:40 AM EDT Sexual OrientationChoose not to kadshchs36/09/2023 9:40 AM EDTdocumented as of this encounter Plan of Treatment DateTypeDepartmentCare Team (Latest Contact Info)Bnetfyeuvxp46/10/2026 10:35 AM ESTOffice Visit [facility] [address] [place] [phone] Lyudmila Thakur, GOVERNMENT SERVICE EXECUTIVE-ROAD TRAIN DRIVER [address] [place] [address] documented as of this encounter Visit Diagnoses Not on filedocumented in this encounter Care Teams Team MemberRelationshipSpecialtyStart DateEnd Date Atilio Alcocer DO [address] [place] [address] PCP - GeneralInternal Odcrkref51/10/23documented as of this encounter
--- OUTSIDE RECORDS SUMMARY | 2025-04-19 10:49 | XMS_ITS | Encounter Summary ---
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 [address] [place] [address] Social History Tobacco UseTypesPacks/DayYears UsedDateSmoking Tobacco: NeverSmokeless [...] occasion?Never03/28/2023Sex and Gender InformationValueDate RecordedSex Assigned at ImhxzHtmu22/09/2023 9:40 AM EDT Legal IbsAddm3607/16/2022 7:28 PM EDTGender WfyxuphxQhzr39/09/2023 9:40 AM EDT Sexual OrientationChoose not to gdejuols27/09/2023 9:40 AM EDTdocumented as of this encounter Plan of Treatment DateTypeDepartmentCare Team (Latest Contact Info)Bzsuuuuvlec33/10/2026 10:35 AM ESTOffice Visit [facility] [place] [facility] [address] [place] [phone] Lyudmila Thakur, MARCO A-MERCHANDISE PROCESSOR [address] [place] [address] documented as of this encounter Visit Diagnoses Not on filedocumented in this encounter Care Teams Team MemberRelationshipSpecialtyStart DateEnd Date Atilio Alcocer, [address] [facility] [place] [phone] PCP - GeneralInternal Wzrhtkqv43/10/23documented as of this encounter
[2025-04-19 11:20] LABS: Hematocrit 43.2 % (42.0-54.0); Hemoglobin 15.2 g/dL (14.0-18.0); Immature Granulocytes Abs Auto 0.01 10^3/uL (0.00-0.03); Immature Granulocytes Pct Auto 0.3 % (0.0-0.5); Lymphocytes Absolute Auto 0.9 10^3/uL (1.2-3.8); Mean Corpuscular HGB Conc 35.2 g/dL (29.9-35.2); Mean Corpuscular Hemoglobin 32.7 pg (25.9-34.0); Mean Corpuscular Volume 92.9 fL (80.0-94.0); Platelet Count 147 10^3/uL (150-450); Red Blood Count 4.65 10^6/uL (4.70-6.10); White Blood Count 3.0 10^3/uL (4.0-11.0)
[2025-04-19 11:39] LABS: Alanine Aminotransferase 21 U/L (16-63); Albumin Globulin Ratio 1.0; Albumin Level 3.6 g/dL (3.4-5.0); Alkaline Phosphatase 72 U/L (46-116); Anion Gap 9.7; Aspartate Amino Transferase 18 U/L (15-37); Blood Urea Nitrogen 11.0 mg/dL (7.0-18.0); Calcium 9.3 mg/dL (8.5-10.1); Carbon Dioxide 31.7 mmol/L (21.0-32.0); Chloride 105 mmol/L (98-107); Cholesterol 220 mg/dL (<=200); Estimated GFR (African America >60 (>=60 mL/min/1.73m^2); Estimated GFR (Non-African Ame >60 (>=60 mL/min/1.73m^2); Globulin 3.5 g/dL; Glucose 94 mg/dL (74-106); HDL Cholesterol 51 mg/dL (40-60); Potassium 4.4 mmol/L (3.5-5.1); Sodium 142 mmol/L (136-145); Total Protein 7.1 g/dL (6.4-8.2); Triglycerides 70 mg/dL (<=150); VLDL CHOLESTEROL 14.0 mg/dL
== END 2025-04-19 10:44 | disposition home or self-care (01) ==
LOC: LAB 10:45
PROVIDERS: PCP Internal Medicine; Visit Provider Internal Medicine
DX: Z00.00 Encounter for general adult medical examination without abnormal findings (principal); Z12.5 Encounter for screening for malignant neoplasm of prostate
CPT/HCPCS: 36415; 80053; 80061; 85025; G0103